=== PATIENT | female | born 1950 | race Caucasian/White ===

== ENCOUNTER 2024-11-11 16:11 | Inpatient (IN) | payer MEDICARE, SELFPAY ==
--- NOTE | 2024-11-11 | ECG_ITS ---
Test Reason : pre op Blood Pressure : */* mmHG Vent. Rate : 77 BPM Atrial Rate : 77 BPM P-R Int : 162 ms QRS Dur : 86 ms QT Int : 382 ms P-R-T Axes : 50 64 66 degrees QTcB Int : 432 ms Normal sinus rhythm Normal ECG No previous ECGs available Referred By: Ria Uribe Electronically Signed By: RY PANIAGUA MD
--- NOTE | ~2024-11-11 | XR_ITS ---
CLINICAL HISTORY: fx --- Additional Notes or Special Instructions: Done - 1 view chest x-ray Comparison: None Findings: The lungs are clear. Heart size is normal. No acute fracture. IMPRESSION: 1. No acute findings. This document has been electronically signed by: Andrés Krause MD on 11/11/2024 17:44:42
--- NOTE | ~2024-11-11 | XR_ITS ---
CLINICAL HISTORY: fall R hip pain unable to walk --- Additional Notes or Special Instructions: Done - 3 view, pelvis and right hip Comparison: None Findings: Moderately displaced subcapital femoral neck fracture on the right. No significant arthritic change. The soft tissues are unremarkable. IMPRESSION: Right subcapital femoral neck fracture. This document has been electronically signed by: Andrés Krause MD on 11/11/2024 17:44:32
--- NOTE | ~2024-11-11 | XR_ITS ---
CLINICAL HISTORY: s p rt hip phyllis 1 view pelvis Comparison: X-rays of the pelvis and right hip from 11/11/2024. Findings: Postprocedural changes from right hip arthroplasty. Postprocedural changes include soft tissue gas, soft tissue swelling, and fluid. Sclerosis of the left femoral neck is nonspecific. Moderate to severe osteoarthritis of the left hip noted. Mild pubic rami deformities appear old/chronic. Sacrum and SI joints are mostly obscured with obscuration of the portions of the pelvis. Soft tissues are unremarkable. IMPRESSION: 1. New postprocedural changes from right hip arthroplasty for previous right femur fracture. 2. Nonspecific sclerosis of the left femoral neck. Consider dedicated left hip imaging, if clinically indicated and when clinically able. This document has been electronically signed by: Arcenio Pro MD on 11/12/2024 19:42:39
[2024-11-11 16:18] VITALS: BP 196/96; BP 198/93; PULSE 81; PULSE 82; RESP 20; TEMP 36.8; O2SAT 98; BMI 30.4
--- NOTE | 2024-11-11 16:49 | ED.LOWEXIN ---
HPI - Extremity Injury (Lower) General Chief Complaint: Extremity Injury, Lower Stated Complaint: mechanical fall no loc, r hip pain, no head strike Time Seen by Provider: 11/11/24 16:48 Source: patient, EMS, RN notes reviewed and old records reviewed Mode of arrival: EMS History of Present Illness ED Provider: Amy Vela PA-C HPI Narrative: 74-year-old female with past medical history DM presenting to ED via EMS from [facility] complaining of right hip pain s/p mechanical trip and fall [employer]. Patient states she was standing looking out the window and stepped back however lost her footing, states her walker was behind her, and fell onto buttock/right side. Denies head trauma or LOC. Has been unable to ambulate/stand since incident. Denies numbness, tingling, weakness, back pain, abdominal pain Related Data Allergies Allergy/AdvReac Type Severity Reaction Status Date / Time aspartame Allergy Unknown Verified 11/11/24 16:30 [From Nutrasweet Aspartame] codeine Allergy Unknown Verified 11/11/24 16:30 empagliflozin Allergy Unknown Verified 11/11/24 16:30 [From Jardiance] Iodinated Contrast Media Allergy Unknown Verified 11/11/24 16:30 [IV Contrast Dye] lamotrigine [From Lamictal] Allergy Unknown Verified 11/11/24 16:30 Review of Systems Review of Systems: Yes all other systems are reviewed and are negative Constitutional: Constitutional: Reports as per [facility] Past Medical History Attestation statement: The following information was validated with the patient. Source: old records reviewed Social History Social History Advance Directives: No Advance Directives Information Provided: No Physical Exam Vital Signs: Vital Signs: Last Vital Signs Temp 98.3 F 11/11/24 16:18 Pulse 81 11/11/24 16:18 Resp 20 11/11/24 16:18 BP 196/96 H 11/11/24 16:18 Pulse Ox 98 11/11/24 16:18 O2 Del Method Room Air 11/11/24 16:18 BMI result Body Mass Index 30.4 Const: General: cooperative, healthy appearing and no acute distress Orientation/consciousness: patient oriented x3 Limitations: no limitations HEENT: Head: Yes normal to inspection and Yes atraumatic Ears: hearing grossly normal bilaterally General nose exam: Normal external nose present Face and sinus: Yes normal facial exam Eyes: General: appearance normal, both eyes and all related structures EOM: EOMs intact bilaterally Neck: Neck: Yes normal visual inspection and Yes no meningeal signs Resp: Effort & Inspection: normal respiratory effort and no respiratory distress Cardio: Rate: regular rate GI: Inspection: Yes normal to inspection Palpation (GI): Soft to palpation, nontender, no guarding and not rigid Skin: Rashes: no rashes Wounds: no wounds Neuro: General: patient oriented x3, tone normal, moves all extremities and no meningeal signs Cranial nerves: Yes CN's II-XII intact bilaterally Extrem: Other: Pelvis stable. Right hip without appreciable deformity. Diffusely tender to palpation. Limited ROM secondary to pain. Neurovascularly intact distally. No erythema or ecchymosis Course Course Course Narrative: XR hip RT w PEL1V IMPRESSION: Right subcapital femoral neck fracture. -CXR unremarkable > case discussed with orthopedic JUDSON Zhang, recommended medicine admit, NPO at midnight and likely surgery tomorrow > case discussed with hospitalist [id number] Medications Administered Discontinued Medications Generic Name Dose Route Start Last Admin Trade Name Freq PRN Reason Stop Dose Admin Tramadol HCl 50 mg 11/11/24 16:55 11/11/24 17:36 Tramadol Hcl 50 Mg Tablet PO 11/11/24 16:56 50 mg ONCE ONE Administration Medical Decision Making Medical Decision Making [facility] Narrative: 74-year-old female with past medical history DM presenting to ED via EMS from [facility] complaining of right hip pain s/p mechanical trip and fall [employer]. On exam VSS, NAD, physical exam as noted above with reproducible right hip tenderness and limited ROM secondary to pain. Abdomen is soft and nontender. Concern for fracture vs contusion. Lower suspicion for dislocation. No open wounds. Plan: X-ray, pain control Please refer to course for remaining clinical decision making, interpretation of labs/imaging results, and discussions with consultants and/or family members. Differential Diagnosis Differential Diagnoses: The differential diagnosis associated with the presentation includes As above Admission/Observation Consideration of admission/observation: Escalation of care including admission/observation considered Consult Healthcare Provider Management of the patient was discussed with: Hospitalist and Assessment Expert Lab Data [facility] Lab Attestation statement: I reviewed the patient's lab results. Independent Interpretation I performed an independent interpretation of an: Plain X-Ray Radiology Impression Discussion of test interpretation with radiology: I have reviewed the radiologist's reading. Independent Historian Clinical information obtained from an independent historian. History obtained from or confirmed by: EMS External Record Review External record reviewed: Inpatient record, Office record, Outpatient record, Prior outpatient labs, Prior outpatient radiology, Primary care record and Outside ED record Tests considered The following testing was considered but not selected: As above Prescription Management I considered prescription management with: Pain Medication Chronic Conditions Patient?s care impacted by: Other Social Determinants Patient?s care significantly limited by Social Determinants of Health including: Problems related to primary support group and Other Social Determinant of Health Discharge Plan Discharge Clinical Impression: Closed subcapital fracture of neck of femur Qualifiers: Encounter type: initial encounter Laterality: right Qualified Code(s): S72.011A - Unspecified intracapsular fracture of right femur, initial encounter for closed fracture Patient Disposition: Admitted As Inpatient Print Language: Citizen Of [place]
[2024-11-11] MEDS: traMADoL HCL 50 MG TABLET PO (17:36)
[2024-11-11 18:23] LABS: MANUAL DIFF FLAG NO
[2024-11-11 18:31] LABS: Basophils Absolute Auto 0.1 X10*3/uL (0.0-0.2); Basophils Percent Auto 0.6 % (0-2); Eosinophils Absolute Auto 0.1 X10*3/uL (0.0-0.4); Hematocrit 35.5 % (37.0-47.0); Hemoglobin 12.3 g/dl (12.0-16.0); Imm Gran Abs Auto 0.08 X10*3/uL (0.00-0.03); Imm Gran Pct Auto 0.9 % (0.0-0.4); Lymphocytes Absolute Auto 1.3 X10*3/uL (1.2-4.9); Lymphocytes Percent Auto 15.1 % (20-40); Mean Corpuscular HGB Conc 34.6 g/dl (31.0-35.0); Mean Corpuscular Volume 86.6 fL (80.0-98.0); Mean Platelet Volume 9.1 fL (9.4-12.3); Monocytes Absolute Auto 0.5 X10*3/uL (0.1-1.2); Neutrophils Absolute Auto 6.8 x10*3/uL (2.0-8.3); Neutrophils Percent Auto 76.4 % (45-73); Platelet Count 348 X10*3/uL (160-400); Red Cell Distribution Width 11.8 % (11.0-16.0); White Blood Count 8.9 X10*3/uL (4.8-10.8)
[2024-11-11 18:38] LABS: Anion Gap 14 (12-20); Blood Urea Nitrogen 10 mg/dL (9-16); Calcium 9.5 mg/dL (8.4-10.2); Carbon Dioxide 26 mmol/L (22-29); Chloride 97 mmol/L (96-108); Creatinine Clr Calc Pharmacy 80.8; Estimated Glomerular Filt Rate > 60; Glucose Random 178 mg/dL (60-115); Potassium 3.9 mmol/L (3.3-5.1); Sodium 133 mmol/L (135-145)
--- NOTE | 2024-11-11 18:56 | PHA.MEDREC ---
Addendum entered by Carolin Ward RPh 11/11/24 19:05: reviewed by [facility]. Original Note: Pharmacy Consult ? Medication Reconciliation Pharmacy has completed the medication reconciliation. Utilized list from [facility] to confirm med list.
--- NOTE | 2024-11-11 19:06 | PM.IMHP ---
History of Present Illness Date of Service: 11/11/24 Attending physician on admission: Lynn Patterson Chief Complaint: fall Patient is a 74-year-old female currently living in [facility], an assisted living facility, with past medical history [id number] diabetes, hypertension, hyperlipidemia, GERD, hypothyroidism, iron-deficiency anemia, depression, vitamin-D and vitamin B12 deficiencies, maricarmen hx presents to the emergency department via ambulance status post unwitnessed fall resulting in right femur fracture. Patient states she was using her walker looking out her window and suddenly fell backwards with a walker. Patient is not 100% sure she had loss of consciousness or hit to the head.. Patient states she was on the floor for approximately 20 minutes before help arrived from staff at the facility. Patient offers that she does not understand why her legs give out the way they do. Patient reports other similar falls but no injury like today. Balderrama was placed in the ED today. Patient is a poor historian and does not know her medications. Unable to reach patient's daughter, Becca Alvarado who is the healthcare proxy. No phone number is listed. Orthopedics has been consulted and plan is for surgery in the morning. Patient will be NPO. Currently providing pain management as patient is reporting 10/10 right upper leg pain. Patient currently denying any headache, chest pain, nausea or vomiting. Review of Systems Review of Systems: Patient denies any headache, visual changes, chest pain, shortness of breath at rest or with exertion, abdominal pain. Patient is reporting 10/10 right upper back pain after 1 dose of tramadol. Patient states she does not believe she has an allergy to codeine. Yes all other systems are reviewed and are negative [facility] Cognitive capacity: Alert and orientated x3, short-term and long-term memory appear fair Functional capacity: bed bound (Currently due to right lower leg fracture otherwise patient uses walker) Patient : No Social History (Updated 11/11/24 @ 20:34 by CHIP Goncalves) Alcohol intake: never Patient Tobacco Use Status: Never used Tobacco Use of substances other than those prescribed or required for medical reasons: No Are you DNR?: No Advance Directives: No Advance Directives Information Provided: No Healthcare Proxy: Yes Do you have a plan to hurt others: No Plan Patient : No Ebola Risk: Travel/Contact With Anyone From Affected Area/s: No Has Patient Experienced Ebola Symptoms: No Meds Allergies Allergy/AdvReac Type Severity Reaction Status Date / Time aspartame Allergy Unknown Verified 11/11/24 16:30 [From Nutrasweet Aspartame] codeine Allergy Unknown Verified 11/11/24 16:30 empagliflozin Allergy Unknown Verified 11/11/24 16:30 [From Jardiance] Iodinated Contrast Media Allergy Unknown Verified 11/11/24 16:30 [IV Contrast Dye] lamotrigine [From Lamictal] Allergy Unknown Verified 11/11/24 16:30 Active Medications: Current Medications Acetaminophen (Acetaminophen 325 Mg Tablet) 650 mg PO Q6H PRN PRN Reason: Pain, Mild 1-3,fever,headache Calcium Carbonate (Calcium Carbonate 750 Mg Tab.Chew) 750 mg PO Q4H PRN PRN Reason: Heartburn Magnesium Hydroxide (Milk Of Magnesia 30 Ml Oral.Susp) 30 ml PO DAILY PRN PRN Reason: Constipation Melatonin (Melatonin 3 Mg Tablet) 6 mg PO BEDTIME PRN PRN Reason: Insomnia Ondansetron HCl (Ondansetron Hcl 4 Mg/2 Ml Vial) 4 mg IVPUSH Q8H PRN PRN Reason: Nausea and Vomiting Senna (Sennosides 8.6 Mg Tablet) 17.2 mg PO BEDTIME AYLIN Sodium Chloride (0.9 % Sodium Chloride Flush 3 Ml Syringe) 3 ml IVFLUSH QSHIFT AYLIN Tramadol HCl (Tramadol Hcl 50 Mg Tablet) 50 mg PO Q6H PRN PRN Reason: Pain, Moderate(Pain Scale 4-6) Home Medications ?Medication ?Instructions ?Recorded ?Confirmed ?Last Taken ?Type Lactobacillus acidophilus 1,000 mmu cells PO DAILY 11/11/24 11/11/24 Unknown History (Acidophilus capsule) acetaminophen 500 mg tablet 500 mg PO Q6H PRN Pain 11/11/24 11/11/24 Unknown History aspirin 81 mg capsule 81 mg PO DAILY 11/11/24 11/11/24 Unknown History atorvastatin 40 mg tablet 40 mg PO BEDTIME 11/11/24 11/11/24 Unknown History cholecalciferol (vitamin D3) 25 25 mcg PO DAILY 11/11/24 11/11/24 Unknown History mcg (1,000 unit) tablet (Vitamin D3) cyanocobalamin (vitamin B-12) 1,000 mcg PO MOWEFR 11/11/24 11/11/24 Unknown History 1,000 mcg tablet (Vitamin B-12) duloxetine 60 mg capsule,delayed 60 mg PO DAILY 11/11/24 11/11/24 Unknown History release ferrous sulfate 324 mg (65 mg 324 mg PO DAILY 11/11/24 11/11/24 Unknown History iron) tablet,delayed release levothyroxine 25 mcg tablet 25 mcg PO DAILY@0600 11/11/24 11/11/24 Unknown History lidocaine 4 % topical patch 1 patch topical DAILY PRN Pain 11/11/24 11/11/24 Unknown History liraglutide 0.6 mg/0.1 mL (18 mg/3 1.2 mg subcut DAILY 11/11/24 11/11/24 Unknown History mL) subcutaneous pen injector (Baoku 3-Román) lisinopril 10 mg tablet 10 mg PO DAILY 11/11/24 11/11/24 Unknown History loperamide 2 mg tablet 2 mg PO BID PRN Diarrhea 11/11/24 11/11/24 Unknown History lurasidone 80 mg tablet 80 mg PO DAILY 11/11/24 11/11/24 Unknown History meloxicam 15 mg tablet 15 mg PO DAILY 11/11/24 11/11/24 Unknown History metformin 1,000 mg tablet 1,000 mg PO BID 11/11/24 11/11/24 Unknown History mirtazapine 7.5 mg tablet 7.5 mg PO BEDTIME 11/11/24 11/11/24 Unknown History oxcarbazepine 150 mg tablet 150 mg PO DAILY 11/11/24 11/11/24 Unknown History oxcarbazepine 300 mg tablet 300 mg PO BEDTIME 11/11/24 11/11/24 Unknown History pantoprazole 40 mg tablet,delayed 40 mg PO DAILY@0630 11/11/24 11/11/24 Unknown History release Physical Exam Vital Signs and Narrative: Vital Signs: Last Vital Signs Temp 98.3 F 11/11/24 16:18 Pulse 81 11/11/24 16:18 Resp 20 11/11/24 16:18 BP 196/96 H 11/11/24 16:18 Pulse Ox 98 11/11/24 16:18 O2 Del Method Room Air 11/11/24 16:18 BMI result Body Mass Index 30.4 Alert and orientated X3, able to provide some medical history but limited on specifics Neuro: CN II-X11 intact, visual acuity intact Pt unable to move RLE, sensation is intact EYES: PERRLA, EOM intact ENT: hearing intact, no issues with swallowing, uvula midline, lips moist, nares patent no epistaxis Cardiac: S1 S2 RRR, no murmur, no JVD, no edema in Lower ext Pulmonary: lungs clear to ausculation B Abdominal: BS active in all 4 quadrants, no guarding, tenderness, rebounding MSK: strength 4/5 upper and L lower extremity, unable to asses RLE : no CVA tenderness no bladder distension Extremities: no edema in lower extremities, PT and DP pulses palpable +2, R leg extended extended outward, no bruising seen Psych: mood stable, judgement and insight fair Results Labs 11/11/24 18:20 11/11/24 18:20 Labs: Laboratory Results - last 24 hr 11/11/24 18:20 MCV 86.6 MCH 30.0 MCHC 34.6 RDW 11.8 Plt Count 348 MPV 9.1 L Immature Gran % (Auto) 0.9 H Neut % (Auto) 76.4 H Lymph % (Auto) 15.1 L [place] % (Auto) 6.0 Eos % (Auto) 1.0 Baso % (Auto) 0.6 Lymph # (Auto) 1.3 [place] # (Auto) 0.5 Eos # (Auto) 0.1 Baso # (Auto) 0.1 Abs Immat Gran (auto) 0.08 H Absolute Neuts (auto) 6.8 Absolute Nucleated RBC 0.000 Nucleated RBC % (auto) 0.0 PT 11.0 INR 1.0 Anion Gap 14 Estim Creat Clear Calc 80.8 Estimated GFR > 60 Random Glucose 178 H Calcium 9.5 Imaging Radiologist's Impressions: HIP PELVIS R Findings: Moderately displaced subcapital femoral neck fracture on the right. No significant arthritic change. The soft tissues are unremarkable. IMPRESSION: Right subcapital femoral neck fracture. CXR Findings: The lungs are clear. Heart size is normal. No acute fracture. IMPRESSION: 1. No acute findings. Assessment and Plan (1) Closed subcapital fracture of neck of femur: Qualifiers: Encounter type: initial encounter Laterality: right Qualified Code(s): S72.011A - Unspecified intracapsular fracture of right femur, initial encounter for closed fracture Status: Acute Plan Patient is a 74-year-old female currently living in [facility], an assisted living facility, with past medical history itf-hcyrtbp-[id number] diabetes, hypertension, hyperlipidemia, GERD, hypothyroidism, iron-deficiency anemia, depression, vitamin-D and vitamin B12 deficiencies, seziure hx is being admitted for repair of right femur fracture with Orthopedics in the a.m.. Patient is a fairly poor historian. 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 R subcapuital femur fx -Orthopedics consulted -NPO midnight -preop EKG ordered, we will review once available -pain management to include Dilaudid 1 mg x 1, oxycodone p.r.n., Tylenol p.r.n. -bowel regimen started -Lovenox held, aspirin held -neurovascular checks ordered Q shift of right lower extremity -Pt down for short time per pt report, will check CK level -Pt denies hx of osteoporosis History of falls -patient is not the best historian but offers that she has had similar falls with possible loss of consciousness. Patient can not confirm this. -we will start telemetry and monitor rhythm overnight -if any abnormalities found, consult cardiology for near-syncope/syncope -unable to check orthostatics due to patient's right lower leg injury -TEDS ordered HTN -hydralazine p.r.n. for systolic greater than 160 -low-sodium diet -resume home antihypertensives after surgery DMII -sliding scale insulin -diabetic diet -hold metformin HLD -continue atorvastatin Hypothyrpidism -checking TSH with reflex -continue levothyroxine Seizure disorder -continue oxcarbamazepine (patient unable to clarify why she is on this medication, unable to reach healthcare proxy) -patient states no recent history of seizures NED -H&H currently stable 12.3 and 35.5 -continue vitamin B12 -continue iron and bowel regimen -monitor H and H postoperatively GERD -omeprazole -avoid food triggers DVT propphylaxis: held due to possible surgery in AM PPI prophylaxis: omeperazole MED REC Pending [facility] status Quality Stroke Does the patient have a stroke diagnosis?: No Reason for No Anti-thrombotic by Day Two: Contraindicated VTE Prior VTE?: No VTE Risk Level:: Medical - moderate - high VTE Device Contraindication: N/A - Device Ordered VTE Drug Contraindication: N/A - Med Ordered
[2024-11-11 19:46] VITALS: BP 183/86; PULSE 76; RESP 20; TEMP 36.6; O2SAT 97
[2024-11-11] MEDS: HYDROmorphone HCl 1 MG/ML SYRINGE IVPUSH (20:01)
[2024-11-11] MEDS: Omeprazole 20 MG CAPSULE.DR PO (20:02)
[2024-11-11 20:18] VITALS: BP 158/88; PULSE 64
[2024-11-11 22:36] LABS: Glucose, Whole Blood 239 mg/dL (60-115)
[2024-11-11] MEDS: Mirtazapine 7.5 MG TABLET PO (22:52)
[2024-11-11] MEDS: Insulin Lispro 100 UNIT/ML 3 ML VIAL SUBCUT (22:53)
[2024-11-11] MEDS: Sennosides 8.6 MG TABLET 17.2 MG PO (22:53)
[2024-11-11] MEDS: Atorvastatin Calcium 40 MG TABLET PO (22:53)
[2024-11-11] MEDS: OXcarbazepine 300 MG TABLET PO (22:53)
[2024-11-11] MEDS: oxyCODONE HCl Immed Release 5 MG TABLET PO (22:55)
[2024-11-12] VITALS (17 sets, daily range): BP systolic 108–197; BP diastolic 51–85; PULSE 67–89; RESP 11–21; TEMP 36.4–37; O2SAT 92–97
--- NOTE | 2024-11-12 01:43 | PC.NURSE ---
Balderrama urine output demonstrating hematuria. Provider notified, new orders placed.
[2024-11-12] MEDS: hydrALAZINE HCl 20 MG/ML VIAL 10 MG IVPUSH (01:51)
[2024-11-12] MEDS: HYDROmorphone HCl 0.5 MG/0.5 ML SYRINGE IVPUSH ×2 (01:51→07:41)
[2024-11-12] MEDS: 0.9 % Sodium Chloride Flush 3 ML SYRINGE IVFLUSH ×4 (01:52→20:21)
[2024-11-12] MEDS: amLODIPine Besylate 5 MG TABLET PO (04:17)
[2024-11-12] MEDS: ondansetron HCL 4 MG/2 ML VIAL IVPUSH ×2 (04:17→14:11)
[2024-11-12 04:58] LABS: Appearance Urine Cloudy; Color Urine Orange; Glucose Urine UA 250 mg/dL (Negative); Leukocyte Esterase Urine Small (1+) (Negative); Nitrite Urine Negative (Negative); UMIC TRIGGER UA YES; Urine Blood Large (3+) (Negative); Urine Ketones Trace mg/dL (Negative); Urine Protein 300 (3+) mg/dL (Neg-Trace)
[2024-11-12 04:59] LABS: Bacteria Urine None Seen (None Seen); Hyaline Casts Urine 0-2 /LPF (0-2); RBC Urine >20 /HPF (0-2); Squamous Epithelial Cell Urine 0-2 /HPF (0-2)
--- NOTE | 2024-11-12 05:36 | PC.NURSE ---
Notified provider of pts elevated bp, new order placed medications administered as per mar
[2024-11-12] MEDS: oxyCODONE HCl Immed Release 5 MG TABLET PO ×2 (05:39→11:27)
[2024-11-12] MEDS: Levothyroxine Sodium 25 MCG TABLET PO (07:21)
[2024-11-12 07:40] LABS: Glucose, Whole Blood 246 mg/dL (60-115)
[2024-11-12] MEDS: Omeprazole 20 MG CAPSULE.DR PO (07:42)
[2024-11-12 08:28] LABS: MANUAL DIFF FLAG NO
[2024-11-12 08:31] LABS: Basophils Absolute Auto 0.1 X10*3/uL (0.0-0.2); Basophils Percent Auto 0.4 % (0-2); Eosinophils Absolute Auto 0.1 X10*3/uL (0.0-0.4); Hematocrit 36.8 % (37.0-47.0); Hemoglobin 12.7 g/dl (12.0-16.0); Imm Gran Abs Auto 0.05 X10*3/uL (0.00-0.03); Imm Gran Pct Auto 0.4 % (0.0-0.4); Lymphocytes Percent Auto 8.2 % (20-40); Mean Corpuscular HGB Conc 34.5 g/dl (31.0-35.0); Mean Corpuscular Hemoglobin 29.5 pg (27.0-33.0); Mean Corpuscular Volume 85.4 fL (80.0-98.0); Mean Platelet Volume 8.8 fL (9.4-12.3); Monocytes Absolute Auto 0.5 X10*3/uL (0.1-1.2); Monocytes Percent Auto 3.7 % (2-11); Neutrophils Absolute Auto 10.6 x10*3/uL (2.0-8.3); Neutrophils Percent Auto 86.3 % (45-73); Platelet Count 348 X10*3/uL (160-400); Red Blood Count 4.31 X10*6/uL (4.20-5.50); Red Cell Distribution Width 11.9 % (11.0-16.0); White Blood Count 12.3 X10*3/uL (4.8-10.8)
[2024-11-12 08:45] LABS: Estimated Average Glucose 189 mg/dL; Hemoglobin A1C 223.6362 umol/L; Hemoglobin A1c % 8.2 % (<6.0); Total Hemoglobin (HGBA1C) 3355.1416 umol/L
[2024-11-12 08:49] LABS: Glucose, Whole Blood 167 mg/dL (60-115)
[2024-11-12 08:50] LABS: Alanine Aminotransferase 17 U/L (0-31); Albumin Level 4.1 g/dL (3.5-5.0); Alkaline Phosphatase 97 U/L (39-117); Anion Gap 12 (12-20); Aspartate Amino Transferase 21 U/L (5-31); Bilirubin Total 0.5 mg/dL (0.0-1.0); Blood Urea Nitrogen 11 mg/dL (9-16); Calcium 9.5 mg/dL (8.4-10.2); Carbon Dioxide 25 mmol/L (22-29); Chloride 97 mmol/L (96-108); Creatinine Clr Calc Pharmacy 76.6; Estimated Glomerular Filt Rate > 60; Glucose Random 240 mg/dL (60-115); Magnesium 1.4 mg/dL (1.6-2.6); Phosphorus 4.2 mg/dL (2.7-4.5); Potassium 4.1 mmol/L (3.3-5.1); Sodium 130 mmol/L (135-145); Total Protein 7.1 g/dL (6.5-8.0)
[2024-11-12 09:10] LABS: TSH reflex Free T4 2.56 uIU/mL (0.32-4.0)
--- NOTE | 2024-11-12 09:26 | PC.NURSE ---
Assumed care of pt this AM. Pt alert, oriented x2. Aware of plan for care. Endorsing R hip and back pain, medicated for pain as per EMR, effective. + cms in RLE. Report given to SSS. Update also given to daughter Becca, HCP (invoked), number placed in chart. Paperwork given to registration for scanning. MD updated on HCP requesting consultation with any further decision making.
--- NOTE | 2024-11-12 09:45 | PM.CNOR ---
History of Present Illness HPI Consult date: 11/12/24 Chief complaint: Fall Narrative: Ms. Buchanan is a 74-year-old female who presented to the emergency department yesterday after sustaining a mechanical fall. Patient is a past medical history significant for diabetes (not insulin dependent), HTN, HLD, GERD, iron deficiency anemia, vitamin D3 and B12 deficiency and depression. There is report that the patient has a past medical history significant for seizures but upon asking the patient she denies this. She states that she was walking with her walker and looking out the window when all of a sudden she began to fall backwards. After the fall she felt immediate right hip pain and was transported to the emergency department where x-rays were obtained and she was found to have a right femoral neck fracture. She was admitted to the medicine service with orthopedic consult for further evaluation and treatment. Review of Systems Review of Systems: Yes all other systems are reviewed and are negative [facility] Past Medical History Medical History (Updated 11/12/24 @ 08:32 by Jackie Castaneda RN) Seizures Vitamin B12 deficiency Vitamin D deficiency Depression Anemia Hypothyroid GERD (gastroesophageal reflux disease) Hyperlipidemia HTN (hypertension) Diabetes Social History Social History (Updated 11/11/24 @ 20:34 by Ria Uribe [facility]) Alcohol intake: never Patient Tobacco Use Status: Never used Tobacco Use of substances other than those prescribed or required for medical reasons: No Are you DNR?: No Advance Directives: No Advance Directives Information Provided: No Healthcare Proxy: Yes Do you have a plan to hurt others: No Plan Patient : No Travel History Ebola Risk: Travel/Contact With Anyone From Affected Area/s: No Has Patient Experienced Ebola Symptoms: No Meds Allergies Allergy/AdvReac Type Severity Reaction Status Date / Time aspartame Allergy Unknown Verified 11/11/24 16:30 [From Nutrasweet Aspartame] codeine Allergy Unknown Verified 11/11/24 16:30 empagliflozin Allergy Unknown Verified 11/11/24 16:30 [From Jardiance] Iodinated Contrast Media Allergy Unknown Verified 11/11/24 16:30 [IV Contrast Dye] lamotrigine [From Lamictal] Allergy Unknown Verified 11/11/24 16:30 Active Medications: Current Medications Acetaminophen (Acetaminophen 325 Mg Tablet) 650 mg PO Q6H PRN PRN Reason: Pain, Mild 1-3,fever,headache Atorvastatin Calcium (Atorvastatin Calcium 40 Mg Tablet) 40 mg PO BEDTIME [facility] Last Admin: 11/11/24 22:53 Dose: 40 mg Calcium Carbonate (Calcium Carbonate 750 Mg Tab.Chew) 750 mg PO Q4H PRN PRN Reason: Heartburn Cyanocobalamin (Cyanocobalamin (Vitamin B-12) 1,000 Mcg Tablet) 1,000 mcg PO MOWEFR [facility] Dextrose (Dextrose 50 % 25 Gm/50 Ml Syringe) 25 gm IVPUSH Q15M PRN; Protocol PRN Reason: per Hypoglycemia Standing Ord. Duloxetine HCl (Duloxetine Hcl 60 Mg Capsule.Dr) 60 mg PO DAILY [facility] Ferrous Sulfate (Ferrous Sulfate 324 Mg Tablet.Dr) 324 mg PO DAILY [facility] Glucose (Glucose Gel 15 Gm Gel..Gram.) 15 gm PO Q15M PRN; Protocol PRN Reason: per Hypoglycemia Standing Ord. Hydralazine HCl (Hydralazine Hcl 20 Mg/Ml Vial) 10 mg IVPUSH Q6H PRN; Protocol PRN Reason: SBP > 160 Last Admin: 11/12/24 01:51 Dose: 10 mg Hydromorphone HCl (Hydromorphone Hcl 0.5 Mg/0.5 Ml Syringe) 0.5 mg IVPUSH Q3H PRN; Protocol PRN Reason: Pain, Severe (Pain Scale 7-10) Last Admin: 11/12/24 07:41 Dose: 0.5 mg Insulin Human Lispro (Insulin Lispro 100 Unit/Ml 3 Ml Vial) 0 unit SUBCUT QIDACHS [facility]; Protocol Last Admin: 11/12/24 07:40 Dose: Not Given Levothyroxine Sodium (Levothyroxine Sodium 25 Mcg Tablet) 25 mcg PO DAILY@0600 [facility] Last Admin: 11/12/24 07:21 Dose: 25 mcg Lisinopril (Lisinopril 10 Mg Tablet) 10 mg PO DAILY [facility]; Protocol Lurasidone HCl (Lurasidone Hcl 80 Mg Tablet) 80 mg PO DAILY [facility] Magnesium Hydroxide (Milk Of Magnesia 30 Ml Oral.Susp) 30 ml PO DAILY PRN PRN Reason: Constipation Melatonin (Melatonin 3 Mg Tablet) 6 mg PO BEDTIME PRN PRN Reason: Insomnia Mirtazapine (Mirtazapine 7.5 Mg Tablet) 7.5 mg PO BEDTIME [facility] Last Admin: 11/11/24 22:52 Dose: 7.5 mg Omeprazole (Omeprazole 20 Mg Capsule.Dr) 20 mg PO DAILY@0630 [facility] Last Admin: 11/12/24 07:42 Dose: 20 mg Ondansetron HCl (Ondansetron Hcl 4 Mg/2 Ml Vial) 4 mg IVPUSH Q8H PRN PRN Reason: Nausea and Vomiting Last Admin: 11/12/24 04:17 Dose: 4 mg Oxcarbazepine (Oxcarbazepine 150 Mg Tablet) 150 mg PO DAILY [facility] Oxcarbazepine (Oxcarbazepine 300 Mg Tablet) 300 mg PO BEDTIME [facility] Last Admin: 11/11/24 22:53 Dose: 300 mg Oxycodone HCl (Oxycodone Hcl Immed Release 5 Mg Tablet) 5 mg PO Q6H PRN PRN Reason: Pain, Moderate(Pain Scale 4-6) Last Admin: 11/12/24 05:39 Dose: 5 mg Polyethylene Glycol (Polyethylene Glycol 3350 17 Gm Powd.Pack) 17 gm PO DAILY PRN PRN Reason: Constipation Senna (Sennosides 8.6 Mg Tablet) 17.2 mg PO BEDTIME [facility] Last Admin: 11/11/24 22:53 Dose: 17.2 mg Sodium Chloride (0.9 % Sodium Chloride Flush 3 Ml Syringe) 3 ml IVFLUSH QSHIFT [facility] Last Admin: 11/12/24 09:05 Dose: 3 ml Vitamin D (Cholecalciferol (Vitamin D3) 25 Mcg Tablet) 25 mcg PO DAILY [facility] Home Medications ?Medication ?Instructions ?Recorded ?Confirmed ?Last Taken ?Type Lactobacillus acidophilus 1,000 mmu cells PO DAILY 11/11/24 11/11/24 Unknown History (Acidophilus capsule) acetaminophen 500 mg tablet 500 mg PO Q6H PRN Pain 11/11/24 11/11/24 Unknown History aspirin 81 mg capsule 81 mg PO DAILY 11/11/24 11/11/24 Unknown History atorvastatin 40 mg tablet 40 mg PO BEDTIME 11/11/24 11/11/24 Unknown History cholecalciferol (vitamin D3) 25 25 mcg PO DAILY 11/11/24 11/11/24 Unknown History mcg (1,000 unit) tablet (Vitamin D3) cyanocobalamin (vitamin B-12) 1,000 mcg PO MOWEFR 11/11/24 11/11/24 Unknown History 1,000 mcg tablet (Vitamin B-12) duloxetine 60 mg capsule,delayed 60 mg PO DAILY 11/11/24 11/11/24 Unknown History release ferrous sulfate 324 mg (65 mg 324 mg PO DAILY 11/11/24 11/11/24 Unknown History iron) tablet,delayed release levothyroxine 25 mcg tablet 25 mcg PO DAILY@0600 11/11/24 11/11/24 Unknown History lidocaine 4 % topical patch 1 patch topical DAILY PRN Pain 11/11/24 11/11/24 Unknown History liraglutide 0.6 mg/0.1 mL (18 mg/3 1.2 mg subcut DAILY 11/11/24 11/11/24 Unknown History mL) subcutaneous pen injector (TellFi 3-Román) lisinopril 10 mg tablet 10 mg PO DAILY 11/11/24 11/11/24 Unknown History loperamide 2 mg tablet 2 mg PO BID PRN Diarrhea 11/11/24 11/11/24 Unknown History lurasidone 80 mg tablet 80 mg PO DAILY 11/11/24 11/11/24 Unknown History meloxicam 15 mg tablet 15 mg PO DAILY 11/11/24 11/11/24 Unknown History metformin 1,000 mg tablet 1,000 mg PO BID 11/11/24 11/11/24 Unknown History mirtazapine 7.5 mg tablet 7.5 mg PO BEDTIME 11/11/24 11/11/24 Unknown History oxcarbazepine 150 mg tablet 150 mg PO DAILY 11/11/24 11/11/24 Unknown History oxcarbazepine 300 mg tablet 300 mg PO BEDTIME 11/11/24 11/11/24 Unknown History pantoprazole 40 mg tablet,delayed 40 mg PO DAILY@0630 11/11/24 11/11/24 Unknown History release Physical Exam Vital Signs: Vital Signs: Last Vital Signs Temp 97.9 F 11/12/24 09:26 Pulse 78 11/12/24 09:26 Resp 11 L 11/12/24 09:26 BP 153/84 H 11/12/24 09:26 Pulse Ox 97 11/12/24 09:26 O2 Del Method Room Air 11/12/24 09:26 O2 Flow Rate 2 11/12/24 02:25 BMI result Body Mass Index 30.4 Const: General: cooperative, healthy appearing, comfortable, no acute distress, well developed, alert and awake Orientation/consciousness: patient oriented x3 HEENT: Head: Yes normal to inspection, Yes normocephalic and Yes atraumatic Eyes: General: appearance normal, both eyes and all related structures Neck: Neck: Yes normal visual inspection and Yes no lymphadenopathy Resp: Effort & Inspection: normal respiratory effort and able to speak in complete sentences Cardio: Rate: regular rate Peripheral pulses: Peripheral pulses 2+ throughout GI: Inspection: Yes normal to inspection Palpation (GI): Soft to palpation Skin: General skin exam: no rashes or lesions noted Neuro: General: patient oriented x3 Extrem: Other: Right lower extremity is shortened and externally rotated. Pain with any attempt at motion. Pedal pulse intact. Able to dorsiflex and plantar flex. Psych: Mental Status: mental status grossly normal Results Labs 11/12/24 08:16 11/12/24 08:16 Labs: Abnormal lab results 11/11/24 11/11/24 11/11/24 Range/Units 18:20 18:28 22:32 WBC (4.8-10.8) X10*3/uL RBC 4.10 L (4.20-5.50) X10*6/uL Hct 35.5 L (37.0-47.0) % MPV 9.1 L (9.4-12.3) fL Immature Gran % (Auto) 0.9 H (0.0-0.4) % Neut % (Auto) 76.4 H (45-73) % Lymph % (Auto) 15.1 L (20-40) % Lymph # (Auto) (1.2-4.9) X10*3/uL Abs Immat Gran (auto) 0.08 H (0.00-0.03) X10*3/uL Absolute Neuts (auto) (2.0-8.3) x10*3/uL Sodium 133 L (135-145) mmol/L POC Glucose 167 H 239 H (60-115) mg/dL Random Glucose 178 H (60-115) mg/dL Hemoglobin A1c % (<6.0) % Magnesium (1.6-2.6) mg/dL Urine Color Urine Protein (Neg-Trace) mg/dL Urine Glucose (UA) (Negative) mg/dL Urine Blood (Negative) Ur Leukocyte Esterase (Negative) Urine RBC (0-2) /HPF Urine WBC (0-5) /HPF 11/12/24 11/12/24 11/12/24 Range/Units 04:30 07:37 08:16 WBC 12.3 H (4.8-10.8) X10*3/uL RBC (4.20-5.50) X10*6/uL Hct 36.8 L (37.0-47.0) % MPV 8.8 L (9.4-12.3) fL Immature Gran % (Auto) (0.0-0.4) % Neut % (Auto) 86.3 H (45-73) % Lymph % (Auto) 8.2 L (20-40) % Lymph # (Auto) 1.0 L (1.2-4.9) X10*3/uL Abs Immat Gran (auto) 0.05 H (0.00-0.03) X10*3/uL Absolute Neuts (auto) 10.6 H (2.0-8.3) x10*3/uL Sodium 130 L (135-145) mmol/L POC Glucose 246 H (60-115) mg/dL Random Glucose 240 H (60-115) mg/dL Hemoglobin A1c % 8.2 H (<6.0) % Magnesium 1.4 L* (1.6-2.6) mg/dL Urine Color [place] A Urine Protein 300 (3+) H (Neg-Trace) mg/dL Urine Glucose (UA) 250 H (Negative) mg/dL Urine Blood Large (3+) H (Negative) Ur Leukocyte Esterase Small (1+) H (Negative) Urine RBC >20 H (0-2) /HPF Urine WBC 6-10 H (0-5) /HPF H & H 11/11/24 11/12/24 Range/Units 18:20 08:16 Hgb 12.3 12.7 (12.0-16.0) g/dl Hct 35.5 L 36.8 L (37.0-47.0) % Coagulation 11/11/24 Range/Units 18:20 INR 1.0 (0.9-1.1) All other labs normal. Assessment and Plan (1) Closed subcapital fracture of neck of femur: Qualifiers: Encounter type: initial encounter Laterality: right Qualified Code(s): S72.011A - Unspecified intracapsular fracture of right femur, initial encounter for closed fracture Status: Acute I discussed the case with Dr. Sam and explained the extent of the injury to the patient and options available which include surgical intervention. I explained the procedure in detail along with the length of recovery and rehab course. I explained the risk, benefits and alternatives. Risk including, but not limited to infection, blood clots, bleeding, non union or malunion and nerve/tissue damage to surrounding areas. I answered all their questions and with their understanding they have consented to move forward with Operative Fixation of the right hip. The patient will be T&S, med clearance obtained and she will remain NPO for OR tentatively later this afternoon. Procedures Date of Service Date of Service: 11/12/24
[2024-11-12] MEDS: lisinopriL 10 MG TABLET PO (09:48)
[2024-11-12] MEDS: DULoxetine HCl 60 MG CAPSULE.DR PO (09:48)
[2024-11-12] MEDS: Ferrous Sulfate 324 MG TABLET.DR PO (09:49)
[2024-11-12] MEDS: OXcarbazepine 150 MG TABLET PO (09:49)
[2024-11-12] MEDS: Magnesium Sulfate/H2O 2 GM/50 ML PIGGYBACK IV (09:49)
[2024-11-12] MEDS: Lurasidone HCl 80 MG TABLET PO (09:49)
[2024-11-12] MEDS: Cholecalciferol (Vitamin D3) 25 MCG TABLET PO (09:49)
--- NOTE | 2024-11-12 11:37 | MHC.CM.PN ---
CM met with Patient at bedside, in the ED, and spoke with invoked HCP Agent/Hedy /Daughter @ [phone] and addressed IMM with Daughter (original will be mailed certified mail to Daughter and a copy will be placed on the chart). Patient lives alone at [facility] and she is likely going to need STR(Daughter's first choice is [facility] and [facility] is second choice). CM has initiated and will follow for dc planning. PCP is Dr. Aida Engel and Patient will require BLS transport.
[2024-11-12 12:37] LABS: Glucose, Whole Blood 182 mg/dL (60-115)
--- NOTE | 2024-11-12 13:07 | P.PNIM_ITS ---
Subjective Subjective Date of Service: 11/12/24 Interval History: R hip pain controlled no chest pain or dyspnea Review of Systems Review of Systems: Yes all other systems are reviewed and are negative Physical Exam 2 Vital Signs: Vital Signs: Last Vital Signs Temp 97.7 F 11/12/24 12:22 Pulse 79 11/12/24 12:22 Resp 16 11/12/24 12:22 BP 151/70 H 11/12/24 12:22 Pulse Ox 95 11/12/24 12:22 O2 Del Method Room Air 11/12/24 12:22 O2 Flow Rate 2 11/12/24 02:25 BMI result Body Mass Index 30.4 Gen: in no acute distress HEENT: sclera anicteric, moist mucus membranes Neck: supple Lungs: clear to auscultation bilaterally Heart: regular rate and rhythm, no murmurs Abd: soft, non-tender, non-distended Ext: no edema, RLE externally rotated Skin: warm/well-perfused Neuro: alert and oriented x3, no focal findings Psych: appropriate affect Objective Data Active Medications Acetaminophen (Acetaminophen 325 Mg Tablet) 650 mg PO Q6H PRN PRN Reason: Pain, Mild 1-3,fever,headache Atorvastatin Calcium (Atorvastatin Calcium 40 Mg Tablet) 40 mg PO BEDTIME [facility] Last Admin: 11/11/24 22:53 Dose: 40 mg Documented By: MELANIE Calcium Carbonate (Calcium Carbonate 750 Mg Tab.Chew) 750 mg PO Q4H PRN PRN Reason: Heartburn Cyanocobalamin (Cyanocobalamin (Vitamin B-12) 1,000 Mcg Tablet) 1,000 mcg PO MOWEFR [facility] Last Admin: 11/12/24 09:50 Dose: Not Given Documented By: PREETHI Non-Admin Reason: Med Not Available Dextrose (Dextrose 50 % 25 Gm/50 Ml Syringe) 25 gm IVPUSH Q15M PRN; Protocol PRN Reason: per Hypoglycemia Standing Ord. Duloxetine HCl (Duloxetine Hcl 60 Mg Capsule.) 60 mg PO DAILY [facility] Last Admin: 11/12/24 09:48 Dose: 60 mg Documented By: PREETHI Ferrous Sulfate (Ferrous Sulfate 324 Mg Tablet.) 324 mg PO DAILY [facility] Last Admin: 11/12/24 09:49 Dose: 324 mg Documented By: PREETHI Glucose (Glucose Gel 15 Gm Gel..Gram.) 15 gm PO Q15M PRN; Protocol PRN Reason: per Hypoglycemia Standing Ord. Hydralazine HCl (Hydralazine Hcl 20 Mg/Ml Vial) 10 mg IVPUSH Q6H PRN; Protocol PRN Reason: SBP > 160 Last Admin: 11/12/24 01:51 Dose: 10 mg Documented By: MELANIE Hydromorphone HCl (Hydromorphone Hcl 0.5 Mg/0.5 Ml Syringe) 0.5 mg IVPUSH Q3H PRN; Protocol PRN Reason: Pain, Severe (Pain Scale 7-10) Last Admin: 11/12/24 07:41 Dose: 0.5 mg Documented By: PREETHI Insulin Human Lispro (Insulin Lispro 100 Unit/Ml 3 Ml Vial) 0 unit SUBCUT QIDACHS [facility]; Protocol Last Admin: 11/12/24 12:34 Dose: Not Given Documented By: JOSSELINE Non-Admin Reason: NPO Levothyroxine Sodium (Levothyroxine Sodium 25 Mcg Tablet) 25 mcg PO DAILY@0600 [facility] Last Admin: 11/12/24 07:21 Dose: 25 mcg Documented By: PREETHI Lisinopril (Lisinopril 10 Mg Tablet) 10 mg PO DAILY [facility]; Protocol Last Admin: 11/12/24 09:48 Dose: 10 mg Documented By: PREETHI Lurasidone HCl (Lurasidone Hcl 80 Mg Tablet) 80 mg PO DAILY [facility] Last Admin: 11/12/24 09:49 Dose: 80 mg Documented By: PREETHI Magnesium Hydroxide (Milk Of Magnesia 30 Ml Oral.Susp) 30 ml PO DAILY PRN PRN Reason: Constipation Melatonin (Melatonin 3 Mg Tablet) 6 mg PO BEDTIME PRN PRN Reason: Insomnia Mirtazapine (Mirtazapine 7.5 Mg Tablet) 7.5 mg PO BEDTIME [facility] Last Admin: 11/11/24 22:52 Dose: 7.5 mg Documented By: MELANIE Omeprazole (Omeprazole 20 Mg Capsule.Dr) 20 mg PO DAILY@0630 [facility] Last Admin: 11/12/24 07:42 Dose: 20 mg Documented By: PREETHI Ondansetron HCl (Ondansetron Hcl 4 Mg/2 Ml Vial) 4 mg IVPUSH Q8H PRN PRN Reason: Nausea and Vomiting Last Admin: 11/12/24 04:17 Dose: 4 mg Documented By: MELANIE Oxcarbazepine (Oxcarbazepine 150 Mg Tablet) 150 mg PO DAILY [facility] Last Admin: 11/12/24 09:49 Dose: 150 mg Documented By: PREETHI Oxcarbazepine (Oxcarbazepine 300 Mg Tablet) 300 mg PO BEDTIME [facility] Last Admin: 11/11/24 22:53 Dose: 300 mg Documented By: MELANIE Oxycodone HCl (Oxycodone Hcl Immed Release 5 Mg Tablet) 5 mg PO Q6H PRN PRN Reason: Pain, Moderate(Pain Scale 4-6) Last Admin: 11/12/24 11:27 Dose: 5 mg Documented By: JOSSELINE Polyethylene Glycol (Polyethylene Glycol 3350 17 Gm Powd.Pack) 17 gm PO DAILY PRN PRN Reason: Constipation Senna (Sennosides 8.6 Mg Tablet) 17.2 mg PO BEDTIME [facility] Last Admin: 11/11/24 22:53 Dose: 17.2 mg Documented By: MELANIE Sodium Chloride (0.9 % Sodium Chloride Flush 3 Ml Syringe) 3 ml IVFLUSH QSHIFT [facility] Last Admin: 11/12/24 09:05 Dose: 3 ml Documented By: PREETHI Vitamin D (Cholecalciferol (Vitamin D3) 25 Mcg Tablet) 25 mcg PO DAILY [facility] Last Admin: 11/12/24 09:49 Dose: 25 mcg Documented By: PREETHI Labs 11/12/24 08:16 11/12/24 08:16 Labs: Laboratory Results - last 24 hr 11/11/24 11/11/24 11/11/24 18:20 18:28 20:12 MCV 86.6 MCH 30.0 MCHC 34.6 RDW 11.8 Plt Count 348 MPV 9.1 L Immature Gran % (Auto) 0.9 H Neut % (Auto) 76.4 H Lymph % (Auto) 15.1 L [place] % (Auto) 6.0 Eos % (Auto) 1.0 Baso % (Auto) 0.6 Lymph # (Auto) 1.3 [place] # (Auto) 0.5 Eos # (Auto) 0.1 Baso # (Auto) 0.1 Abs Immat Gran (auto) 0.08 H Absolute Neuts (auto) 6.8 Absolute Nucleated RBC 0.000 Nucleated RBC % (auto) 0.0 PT 11.0 INR 1.0 Anion Gap 14 Estim Creat Clear Calc 80.8 Estimated GFR > 60 POC Glucose 167 H Random Glucose 178 H Estimat Average Glucose Hemoglobin A1c % Calcium 9.5 Phosphorus Magnesium Total Bilirubin AST ALT Alkaline Phosphatase Total Creatine Kinase 57 Total Protein Albumin TSH Urine Color Urine Appearance Urine pH Ur Specific [place] Urine Protein Urine Glucose (UA) Urine Ketones Urine Blood Urine Nitrite Ur Leukocyte Esterase Urine RBC Urine WBC Ur Squamous Epith Cells Urine Bacteria Hyaline Casts Blood Type A Positive Antibody Screen NEGATIVE 11/11/24 11/12/24 11/12/24 22:32 04:30 07:37 MCV MCH MCHC RDW Plt Count MPV Immature Gran % (Auto) Neut % (Auto) Lymph % (Auto) [place] % (Auto) Eos % (Auto) Baso % (Auto) Lymph # (Auto) [place] # (Auto) Eos # (Auto) Baso # (Auto) Abs Immat Gran (auto) Absolute Neuts (auto) Absolute Nucleated RBC Nucleated RBC % (auto) PT INR Anion Gap Estim Creat Clear Calc Estimated GFR POC Glucose 239 H 246 H Random Glucose Estimat Average Glucose Hemoglobin A1c % Calcium Phosphorus Magnesium Total Bilirubin AST ALT Alkaline Phosphatase Total Creatine Kinase Total Protein Albumin TSH Urine Color [place] A Urine Appearance Cloudy Urine pH 6.0 Ur Specific [place] 1.020 Urine Protein 300 (3+) H Urine Glucose (UA) 250 H Urine Ketones Trace Urine Blood Large (3+) H Urine Nitrite Negative Ur Leukocyte Esterase Small (1+) H Urine RBC >20 H Urine WBC 6-10 H Ur Squamous Epith Cells 0-2 Urine Bacteria None Seen Hyaline Casts 0-2 Blood Type Antibody Screen 11/12/24 11/12/24 08:16 12:32 MCV 85.4 MCH 29.5 MCHC 34.5 RDW 11.9 Plt Count 348 MPV 8.8 L Immature Gran % (Auto) 0.4 Neut % (Auto) 86.3 H Lymph % (Auto) 8.2 L [place] % (Auto) 3.7 Eos % (Auto) 1.0 Baso % (Auto) 0.4 Lymph # (Auto) 1.0 L [place] # (Auto) 0.5 Eos # (Auto) 0.1 Baso # (Auto) 0.1 Abs Immat Gran (auto) 0.05 H Absolute Neuts (auto) 10.6 H Absolute Nucleated RBC 0.000 Nucleated RBC % (auto) 0.0 PT INR Anion Gap 12 Estim Creat Clear Calc 76.6 Estimated GFR > 60 POC Glucose 182 H Random Glucose 240 H Estimat Average Glucose 189 Hemoglobin A1c % 8.2 H Calcium 9.5 Phosphorus 4.2 Magnesium 1.4 L* Total Bilirubin 0.5 AST 21 ALT 17 Alkaline Phosphatase 97 Total Creatine Kinase Total Protein 7.1 Albumin 4.1 TSH 2.56 Urine Color Urine Appearance Urine pH Ur Specific [place] Urine Protein Urine Glucose (UA) Urine Ketones Urine Blood Urine Nitrite Ur Leukocyte Esterase Urine RBC Urine WBC Ur Squamous Epith Cells Urine Bacteria Hyaline Casts Blood Type Antibody Screen Assessment and Plan (1) Closed subcapital fracture of neck of femur: Status: Acute Assessment and Plan: d2 for 74yo F with bipolar disorder, DM2, HTN, HLD, GERD, hypothyroidism, and NED who fell and sustained R subcapital femur fracture R femur fracture - Ortho consulted, plan operative repair today, pain control with hydromorphone + oxycodone + APAP - RCRI 1 for DM2, no further preoperative workup indicated - updated pt's daughter/HCP by phone, Hedy history of recurrent falls - telemetry monitoring, PT postop HTN - lisinopril DM2 - hold MTF, give johnnie-dose lispro HLD - statin hypothyroidism - continue LT4 bipolar disorder - continue oxcarbazepine, lurasidone, duloxetine, mirtazapine GERD - PPI NED - continue Fe VTE ppx - SCDs, LMWH postop dispo - STR postop In my clinical judgment, the patient requires continued inpatient hospitalization for the following reasons: operative intervention Total time managing care of this patient today: 45 minutes. Quality Stroke Does the patient have a stroke diagnosis?: No Reason for No Anti-thrombotic by Day Two: Contraindicated VTE Prior VTE?: No VTE Risk Level:: Medical - moderate - high VTE Device Contraindication: N/A - Device Ordered VTE Drug Contraindication: N/A - Med Ordered
[2024-11-12 14:19] LABS: Glucose, Whole Blood 199 mg/dL (60-115)
--- NOTE | 2024-11-12 14:39 | MHC.SHP ---
Pre-Procedural Eval Section A - 24 Hr Update-Section A only Date of Service: 11/12/24 The patient is an INPATIENT: Yes Changes since office visit: No Cold of Flu in the past 2 weeks, No New Medical Problems, No Changes in Medication and No Patient answered all questions The patient has been examined within 24 hours of the surgical procedure. The History & Physical has been completed within 30 days and I have reviewed it.: Yes Section B - Complete if H&P > 30 days Chief Complaint: Fall Allergies: Allergies Allergy/AdvReac Type Severity Reaction Status Date / Time aspartame Allergy Unknown Verified 11/11/24 16:30 [From Nutrasweet Aspartame] codeine Allergy Unknown Verified 11/11/24 16:30 empagliflozin Allergy Unknown Verified 11/11/24 16:30 [From Jardiance] Iodinated Contrast Media Allergy Unknown Verified 11/11/24 16:30 [IV Contrast Dye] lamotrigine [From Lamictal] Allergy Unknown Verified 11/11/24 16:30 Plan I have reviewed the history and physical and performed a pertinent physical examination on my patient. No changes have occurred unless specified. Time Spent With Patient Time: Total time managing care of this patient today ____ minutes.
--- NOTE | 2024-11-12 14:49 | HO.ANESPROP2 ---
[facility] Active Problems Active Problems: All Active Problems Closed subcapital fracture of neck of femur (Acute) Past Medical History Medical History (Updated 11/12/24 @ 14:14 by Marta Barrett RN) Dementia Seizures Vitamin B12 deficiency Vitamin D deficiency Depression Anemia Hypothyroid GERD (gastroesophageal reflux disease) Hyperlipidemia HTN (hypertension) Diabetes Functional capacity: bed bound (Currently due to right lower leg fracture otherwise patient uses walker) Family History Family history of problems with anesthesia: No Surgical History History of Problems with Anesthesia: No Social History Social History (Updated 11/11/24 @ 20:34 by Ria Uribe [facility]) Alcohol intake: never Patient Tobacco Use Status: Former Tobacco user Use of substances other than those prescribed or required for medical reasons: No Are you DNR?: No Advance Directives: No Advance Directives Information Provided: No Healthcare Proxy: Yes Do you have a plan to hurt others: No Plan Patient : No service: No Meds Allergies Allergy/AdvReac Type Severity Reaction Status Date / Time aspartame Allergy Unknown Verified 11/11/24 16:30 [From Nutrasweet Aspartame] codeine Allergy Unknown Verified 11/11/24 16:30 empagliflozin Allergy Unknown Verified 11/11/24 16:30 [From Jardiance] Iodinated Contrast Media Allergy Unknown Verified 11/11/24 16:30 [IV Contrast Dye] lamotrigine [From Lamictal] Allergy Unknown Verified 11/11/24 16:30 Active Medications: Current Medications Acetaminophen (Acetaminophen 325 Mg Tablet) 650 mg PO Q6H PRN PRN Reason: Pain, Mild 1-3,fever,headache Atorvastatin Calcium (Atorvastatin Calcium 40 Mg Tablet) 40 mg PO BEDTIME [facility] Last Admin: 11/11/24 22:53 Dose: 40 mg Calcium Carbonate (Calcium Carbonate 750 Mg Tab.Chew) 750 mg PO Q4H PRN PRN Reason: Heartburn Cyanocobalamin (Cyanocobalamin (Vitamin B-12) 1,000 Mcg Tablet) 1,000 mcg PO MOWEFR [facility] Last Admin: 11/12/24 09:50 Dose: Not Given Dextrose (Dextrose 50 % 25 Gm/50 Ml Syringe) 25 gm IVPUSH Q15M PRN; Protocol PRN Reason: per Hypoglycemia Standing Ord. Duloxetine HCl (Duloxetine Hcl 60 Mg Capsule.Dr) 60 mg PO DAILY [facility] Last Admin: 11/12/24 09:48 Dose: 60 mg Ferrous Sulfate (Ferrous Sulfate 324 Mg Tablet.) 324 mg PO DAILY [facility] Last Admin: 11/12/24 09:49 Dose: 324 mg Glucose (Glucose Gel 15 Gm Gel..Gram.) 15 gm PO Q15M PRN; Protocol PRN Reason: per Hypoglycemia Standing Ord. Hydralazine HCl (Hydralazine Hcl 20 Mg/Ml Vial) 10 mg IVPUSH Q6H PRN; Protocol PRN Reason: SBP > 160 Last Admin: 11/12/24 01:51 Dose: 10 mg Hydromorphone HCl (Hydromorphone Hcl 0.5 Mg/0.5 Ml Syringe) 0.5 mg IVPUSH Q3H PRN; Protocol PRN Reason: Pain, Severe (Pain Scale 7-10) Last Admin: 11/12/24 07:41 Dose: 0.5 mg Insulin Human Lispro (Insulin Lispro 100 Unit/Ml 3 Ml Vial) 0 unit SUBCUT QIDACHS [facility]; Protocol Last Admin: 11/12/24 12:34 Dose: Not Given Levothyroxine Sodium (Levothyroxine Sodium 25 Mcg Tablet) 25 mcg PO DAILY@0600 [facility] Last Admin: 11/12/24 07:21 Dose: 25 mcg Lisinopril (Lisinopril 10 Mg Tablet) 10 mg PO DAILY [facility]; Protocol Last Admin: 11/12/24 09:48 Dose: 10 mg Lurasidone HCl (Lurasidone Hcl 80 Mg Tablet) 80 mg PO DAILY [facility] Last Admin: 11/12/24 09:49 Dose: 80 mg Magnesium Hydroxide (Milk Of Magnesia 30 Ml Oral.Susp) 30 ml PO DAILY PRN PRN Reason: Constipation Melatonin (Melatonin 3 Mg Tablet) 6 mg PO BEDTIME PRN PRN Reason: Insomnia Mirtazapine (Mirtazapine 7.5 Mg Tablet) 7.5 mg PO BEDTIME [facility] Last Admin: 11/11/24 22:52 Dose: 7.5 mg Omeprazole (Omeprazole 20 Mg Capsule.) 20 mg PO DAILY@0630 [facility] Last Admin: 11/12/24 07:42 Dose: 20 mg Ondansetron HCl (Ondansetron Hcl 4 Mg/2 Ml Vial) 4 mg IVPUSH Q8H PRN PRN Reason: Nausea and Vomiting Last Admin: 11/12/24 14:11 Dose: 4 mg Oxcarbazepine (Oxcarbazepine 150 Mg Tablet) 150 mg PO DAILY [facility] Last Admin: 11/12/24 09:49 Dose: 150 mg Oxcarbazepine (Oxcarbazepine 300 Mg Tablet) 300 mg PO BEDTIME [facility] Last Admin: 11/11/24 22:53 Dose: 300 mg Oxycodone HCl (Oxycodone Hcl Immed Release 5 Mg Tablet) 5 mg PO Q6H PRN PRN Reason: Pain, Moderate(Pain Scale 4-6) Last Admin: 11/12/24 11:27 Dose: 5 mg Polyethylene Glycol (Polyethylene Glycol 3350 17 Gm Powd.Pack) 17 gm PO DAILY PRN PRN Reason: Constipation Senna (Sennosides 8.6 Mg Tablet) 17.2 mg PO BEDTIME [facility] Last Admin: 11/11/24 22:53 Dose: 17.2 mg Sodium Chloride (0.9 % Sodium Chloride Flush 3 Ml Syringe) 3 ml IVFLUSH QSHIFT [facility] Last Admin: 11/12/24 09:05 Dose: 3 ml Vitamin D (Cholecalciferol (Vitamin D3) 25 Mcg Tablet) 25 mcg PO DAILY [facility] Last Admin: 11/12/24 09:49 Dose: 25 mcg Home Medications ?Medication ?Instructions ?Recorded ?Confirmed ?Last Taken ?Type Lactobacillus acidophilus 1,000 mmu cells PO DAILY 11/11/24 11/11/24 Unknown History (Acidophilus capsule) acetaminophen 500 mg tablet 500 mg PO Q6H PRN Pain 11/11/24 11/11/24 Unknown History aspirin 81 mg capsule 81 mg PO DAILY 11/11/24 11/11/24 Unknown History atorvastatin 40 mg tablet 40 mg PO BEDTIME 11/11/24 11/11/24 Unknown History cholecalciferol (vitamin D3) 25 25 mcg PO DAILY 11/11/24 11/11/24 Unknown History mcg (1,000 unit) tablet (Vitamin D3) cyanocobalamin (vitamin B-12) 1,000 mcg PO MOWEFR 11/11/24 11/11/24 Unknown History 1,000 mcg tablet (Vitamin B-12) duloxetine 60 mg capsule,delayed 60 mg PO DAILY 11/11/24 11/11/24 Unknown History release ferrous sulfate 324 mg (65 mg 324 mg PO DAILY 11/11/24 11/11/24 Unknown History iron) tablet,delayed release levothyroxine 25 mcg tablet 25 mcg PO DAILY@0600 11/11/24 11/11/24 Unknown History lidocaine 4 % topical patch 1 patch topical DAILY PRN Pain 11/11/24 11/11/24 Unknown History liraglutide 0.6 mg/0.1 mL (18 mg/3 1.2 mg subcut DAILY 11/11/24 11/11/24 Unknown History mL) subcutaneous pen injector ([employer]) lisinopril 10 mg tablet 10 mg PO DAILY 11/11/24 11/11/24 Unknown History loperamide 2 mg tablet 2 mg PO BID PRN Diarrhea 11/11/24 11/11/24 Unknown History lurasidone 80 mg tablet 80 mg PO DAILY 11/11/24 11/11/24 Unknown History meloxicam 15 mg tablet 15 mg PO DAILY 11/11/24 11/11/24 Unknown History metformin 1,000 mg tablet 1,000 mg PO BID 11/11/24 11/11/24 Unknown History mirtazapine 7.5 mg tablet 7.5 mg PO BEDTIME 11/11/24 11/11/24 Unknown History oxcarbazepine 150 mg tablet 150 mg PO DAILY 11/11/24 11/11/24 Unknown History oxcarbazepine 300 mg tablet 300 mg PO BEDTIME 11/11/24 11/11/24 Unknown History pantoprazole 40 mg tablet,delayed 40 mg PO DAILY@0630 11/11/24 11/11/24 Unknown History release Exam Height,Weight and Vital Signs: Height 5 ft 8 in Weight 90.718 kg Last Vital Signs Temp 98.0 F 11/12/24 13:52 Pulse 89 11/12/24 13:52 Resp 15 11/12/24 13:52 BP 162/71 H 11/12/24 13:52 Pulse Ox 94 11/12/24 13:52 O2 Del Method Nasal Cannula 11/12/24 13:52 O2 Flow Rate 2 11/12/24 13:52 Pertinent Lab Results Pertinent Lab Results: Laboratory Tests 11/11/24 11/11/24 11/11/24 18:20 18:28 20:12 WBC 8.9 RBC 4.10 L Hgb 12.3 Hct 35.5 L MCV 86.6 MCH 30.0 MCHC 34.6 RDW 11.8 Plt Count 348 MPV 9.1 L Immature Gran % (Auto) 0.9 H Neut % (Auto) 76.4 H Lymph % (Auto) 15.1 L [place] % (Auto) 6.0 Eos % (Auto) 1.0 Baso % (Auto) 0.6 Lymph # (Auto) 1.3 [place] # (Auto) 0.5 Eos # (Auto) 0.1 Baso # (Auto) 0.1 Abs Immat Gran (auto) 0.08 H Absolute Neuts (auto) 6.8 Absolute Nucleated RBC 0.000 Nucleated RBC % (auto) 0.0 PT 11.0 INR 1.0 Sodium 133 L Potassium 3.9 Chloride 97 Carbon Dioxide 26 Anion Gap 14 BUN 10 Creatinine 0.73 Estim Creat Clear Calc 80.8 Estimated GFR > 60 POC Glucose 167 H Random Glucose 178 H Estimat Average Glucose Hemoglobin A1c % Calcium 9.5 Phosphorus Magnesium Total Bilirubin AST ALT Alkaline Phosphatase Total Creatine Kinase 57 Total Protein Albumin TSH Urine Color Urine Appearance Urine pH Ur Specific [place] Urine Protein Urine Glucose (UA) Urine Ketones Urine Blood Urine Nitrite Ur Leukocyte Esterase Urine RBC Urine WBC Ur Squamous Epith Cells Urine Bacteria Hyaline Casts Blood Type A Positive Antibody Screen NEGATIVE 11/11/24 11/12/24 11/12/24 22:32 04:30 07:37 WBC RBC Hgb Hct MCV MCH MCHC RDW Plt Count MPV Immature Gran % (Auto) Neut % (Auto) Lymph % (Auto) [place] % (Auto) Eos % (Auto) Baso % (Auto) Lymph # (Auto) [place] # (Auto) Eos # (Auto) Baso # (Auto) Abs Immat Gran (auto) Absolute Neuts (auto) Absolute Nucleated RBC Nucleated RBC % (auto) PT INR Sodium Potassium Chloride Carbon Dioxide Anion Gap BUN Creatinine Estim Creat Clear Calc Estimated GFR POC Glucose 239 H 246 H Random Glucose Estimat Average Glucose Hemoglobin A1c % Calcium Phosphorus Magnesium Total Bilirubin AST ALT Alkaline Phosphatase Total Creatine Kinase Total Protein Albumin TSH Urine Color [place] A Urine Appearance Cloudy Urine pH 6.0 Ur Specific [place] 1.020 Urine Protein 300 (3+) H Urine Glucose (UA) 250 H Urine Ketones Trace Urine Blood Large (3+) H Urine Nitrite Negative Ur Leukocyte Esterase Small (1+) H Urine RBC >20 H Urine WBC 6-10 H Ur Squamous Epith Cells 0-2 Urine Bacteria None Seen Hyaline Casts 0-2 Blood Type Antibody Screen 11/12/24 11/12/24 11/12/24 08:16 12:32 14:07 WBC 12.3 H RBC 4.31 Hgb 12.7 Hct 36.8 L MCV 85.4 MCH 29.5 MCHC 34.5 RDW 11.9 Plt Count 348 MPV 8.8 L Immature Gran % (Auto) 0.4 Neut % (Auto) 86.3 H Lymph % (Auto) 8.2 L [place] % (Auto) 3.7 Eos % (Auto) 1.0 Baso % (Auto) 0.4 Lymph # (Auto) 1.0 L [place] # (Auto) 0.5 Eos # (Auto) 0.1 Baso # (Auto) 0.1 Abs Immat Gran (auto) 0.05 H Absolute Neuts (auto) 10.6 H Absolute Nucleated RBC 0.000 Nucleated RBC % (auto) 0.0 PT INR Sodium 130 L Potassium 4.1 Chloride 97 Carbon Dioxide 25 Anion Gap 12 BUN 11 Creatinine 0.77 Estim Creat Clear Calc 76.6 Estimated GFR > 60 POC Glucose 182 H 199 H Random Glucose 240 H Estimat Average Glucose 189 Hemoglobin A1c % 8.2 H Calcium 9.5 Phosphorus 4.2 Magnesium 1.4 L* Total Bilirubin 0.5 AST 21 ALT 17 Alkaline Phosphatase 97 Total Creatine Kinase Total Protein 7.1 Albumin 4.1 TSH 2.56 Urine Color Urine Appearance Urine pH Ur Specific [place] Urine Protein Urine Glucose (UA) Urine Ketones Urine Blood Urine Nitrite Ur Leukocyte Esterase Urine RBC Urine WBC Ur Squamous Epith Cells Urine Bacteria Hyaline Casts Blood Type Antibody Screen Airway Mallampati Class: II (edentulous on top, 2 teeth present on the bottom) TM Dist: >3cm Neck ROM: Full Heart: rrr Lungs: cta Assessment and Plan Assessment Anesthesia Assessment: Anesthesia Plan Discussed and Chart Reviewed Final Anesthetic Review Family History of Problems with Anesthesia: No History of Problems with Anesthesia: No NPO: Yes ASA Class: III Final Preanesthetic Review: No Changes in Pt Med Stat, Meds/Allgs Chart Reviewed and Consent Obtained/Reviewed Patient Risk: Intermediate Procedure Risk: Intermediate Anesthetic Plan Anesthetic Plan: GA Disposition: Standard PACU
[2024-11-12] MEDS: ceFAZolin Sodium/Dextrose,Iso 2 GM/50 ML PIGGYBACK IV (15:10)
--- NOTE | 2024-11-12 16:10 | P.BOP_ITS ---
Brief Operative Note Date of Service: 11/12/24 Pre-op diagnosis: right femoral neck fracture Post-op diagnosis: same Procedure: Right hip hemiarthroplasty Implants: Khoa Accolade2 #5 127 with - bipolar Surgeon: Cristiano Sam MD Anesthesia: GETA and local Was an Cutter Operator Tile used for this Procedure?: Yes Cutter Operator Tile: Anna Stacy Estimated blood loss (mL): 200 IV fluids (mL): 750 Pathology: other Condition: stable Disposition: PACU
--- NOTE | 2024-11-12 16:13 | W.PM.OPN ---
Operative Note Operative Note Date of Service: 11/12/24 Narrative: Procedure in detail: Patient was brought to the operative room placed in the lateral decubitus position. All bony prominences were well padded and the was prepped and draped in standard sterile fashion. IV antibiotics per weight were administered and a time-out was called to identify proper site proper procedure proper surgeon. Radiographs were available and confirmed. I began by making a curvilinear incision over the posterolateral aspect of the greater trochanter. Dissection was taken down to the tensor fascia which was incised in line with the incision and a Charnley retractor was placed. The hip was internally rotated and the external rotators were identified. All vessels in the area were cauterized and a full-thickness capsular/external rotator layer was developed in a hockey-stick fashion starting just proximal to the piriformis. This layer was tagged and the displaced femoral neck fracture was identified. Clean-up cuts was performed while protecxtion the posterolateral soft tissues and the head was removed and measured (43mm) on the back table. I then copiously irrigated the acetabulum and removed all bony fragments. Once this was done I used a cookie cutter to lateralize and a Charnley awl to identify the canal and then sequentially broached up to a 127 deg #5. Her bone quality was decent with good metaphyseal bone. I elected to placde an uncemented prosthesis. I then trialed with a -3mm head and a bipolar component matching the femoral head size. I was satisfied with the range of motion and stability and length. Therefore I removed all instrumentation and copiously irrigated. I then placed my final femoral implant and then retrialed. I was satisfied with the -3/43 implants. My final bipolar components were then placed. I closed the capsular layer with FiberWire and thenirrigated copiously. I performed a layered closure with judy on skin. The patient was placed in sterile dressing extubated brought to recovery room in stable condition there were no known complications.
[2024-11-12 17:53] LABS: Glucose, Whole Blood 269 mg/dL (60-115)
[2024-11-12] MEDS: Insulin Lispro 100 UNIT/ML 3 ML VIAL SUBCUT ×2 (18:07→20:21)
[2024-11-12 20:16] LABS: Glucose, Whole Blood 345 mg/dL (60-115)
[2024-11-12] MEDS: Mirtazapine 7.5 MG TABLET PO (20:20)
[2024-11-12] MEDS: OXcarbazepine 300 MG TABLET PO (20:20)
[2024-11-12] MEDS: Sennosides 8.6 MG TABLET 17.2 MG PO (20:20)
[2024-11-12] MEDS: Atorvastatin Calcium 40 MG TABLET PO (20:20)
[2024-11-13] VITALS (10 sets, daily range): BP systolic 132–185; BP diastolic 60–86; PULSE 81–112; RESP 14–18; TEMP 36.4–37.3; O2SAT 94–98
[2024-11-13] MEDS: Acetaminophen 325 MG TABLET 650 MG PO (03:06)
[2024-11-13] MEDS: hydrALAZINE HCl 20 MG/ML VIAL 10 MG IVPUSH (03:22)
[2024-11-13] MEDS: HYDROmorphone HCl 0.5 MG/0.5 ML SYRINGE IVPUSH ×2 (05:16→21:44)
[2024-11-13] MEDS: Omeprazole 20 MG CAPSULE.DR PO (05:16)
[2024-11-13] MEDS: Levothyroxine Sodium 25 MCG TABLET PO (05:16)
[2024-11-13 05:53] LABS: Hematocrit 34.3 % (37.0-47.0); Hemoglobin 11.5 g/dl (12.0-16.0); Mean Corpuscular HGB Conc 33.5 g/dl (31.0-35.0); Mean Corpuscular Hemoglobin 29.4 pg (27.0-33.0); Mean Corpuscular Volume 87.7 fL (80.0-98.0); Mean Platelet Volume 9.2 fL (9.4-12.3); Platelet Count 318 X10*3/uL (160-400); Red Blood Count 3.91 X10*6/uL (4.20-5.50); Red Cell Distribution Width 12.1 % (11.0-16.0); White Blood Count 13.6 X10*3/uL (4.8-10.8)
[2024-11-13 06:07] LABS: Anion Gap 15 (12-20); Blood Urea Nitrogen 14 mg/dL (9-16); Calcium 9.1 mg/dL (8.4-10.2); Carbon Dioxide 22 mmol/L (22-29); Chloride 96 mmol/L (96-108); Creatinine Clr Calc Pharmacy 75.7; Estimated Glomerular Filt Rate > 60; Glucose Random 267 mg/dL (60-115); Potassium 4.3 mmol/L (3.3-5.1); Sodium 129 mmol/L (135-145)
[2024-11-13 07:12] LABS: Glucose, Whole Blood 253 mg/dL (60-115)
[2024-11-13 07:56] LABS: Magnesium 1.9 mg/dL (1.6-2.6)
[2024-11-13] MEDS: 0.9 % Sodium Chloride Flush 3 ML SYRINGE IVFLUSH ×3 (08:02→21:46)
[2024-11-13] MEDS: Insulin Lispro 100 UNIT/ML 3 ML VIAL SUBCUT ×4 (08:02→21:46)
[2024-11-13] MEDS: Ferrous Sulfate 324 MG TABLET.DR PO (08:03)
[2024-11-13] MEDS: Cholecalciferol (Vitamin D3) 25 MCG TABLET PO (08:03)
[2024-11-13] MEDS: DULoxetine HCl 60 MG CAPSULE.DR PO (08:03)
[2024-11-13] MEDS: lisinopriL 10 MG TABLET PO (08:03)
[2024-11-13] MEDS: Lurasidone HCl 80 MG TABLET PO (08:03)
[2024-11-13] MEDS: OXcarbazepine 150 MG TABLET PO (08:03)
--- NOTE | 2024-11-13 10:28 | PM.PNORT ---
Subjective Subjective Date of Service: 11/13/24 Interval history: POD1 s/p rt hip phyllis Patient is resting in bed comfortably No overnight events Pain is managed No additional complaints Physical Exam Vital Signs: Vital Signs: Last Vital Signs Temp 97.6 F 11/13/24 07:39 Pulse 86 11/13/24 07:39 Resp 14 11/13/24 07:39 BP 136/78 11/13/24 07:39 Pulse Ox 97 11/13/24 07:39 O2 Del Method Nasal Cannula 11/13/24 07:39 O2 Flow Rate 2 11/13/24 07:39 BMI result Body Mass Index 30.4 Const: General: cooperative, healthy appearing and no acute distress Resp: Effort & Inspection: normal respiratory effort and able to speak in complete sentences Cardio: Rate: regular rate Peripheral pulses: Peripheral pulses 2+ throughout GI: Palpation (GI): Soft to palpation Skin: Lesions: no lesions Rashes: no rashes Extrem: Other: right hip dressing is c/d/i. Able to dorsi/plantar flex. Calf is supple and nontender. Sensation intact. Pedal pulse intact. Procedures Date of Service Date of Service: 11/13/24 Progress Note: A&P Assessment and plan (1) Closed subcapital fracture of neck of femur: Status: Acute Plan Continue pain mgmnt Begin Lovenox for dvt ppx begin PT/OT for rt hip phyllis - WBAT, posterior precautions Dispo planning-Pending PT eval, pain mgmnt, able to d/c to rehab once medically cleared Time Spent With Patient Time: Total time managing care of this patient today ____ minutes. Quality Stroke Does the patient have a stroke diagnosis?: No Reason for No Anti-thrombotic by Day Two: Contraindicated VTE Prior VTE?: No VTE Risk Level:: Medical - moderate - high VTE Device Contraindication: N/A - Device Ordered VTE Drug Contraindication: N/A - Med Ordered
[2024-11-13 11:33] LABS: Glucose, Whole Blood 290 mg/dL (60-115)
[2024-11-13] MEDS: oxyCODONE HCl Immed Release 5 MG TABLET PO (12:07)
--- NOTE | 2024-11-13 12:34 | HO.POSTANES ---
Post Anesthesia Evaluation Post Anesthesia Evaluation Date of Service: 11/13/24 Vital Signs: Vital Signs Temp Pulse Resp BP Pulse Ox O2 Del Method O2 Flow Rate 11/13/24 12:00 99.1 F 107 H 16 144/65 H 95 Nasal Cannula 2 11/13/24 07:39 97.6 F 86 14 136/78 97 Nasal Cannula 2 11/13/24 04:23 149/67 H 11/13/24 03:27 97.5 F 82 16 185/86 H 94 Nasal Cannula 3 11/13/24 03:19 185/86 H Anesthesia: General Endotracheal-GETA Mental Status: Awake Pain Control: Satisfactory Nausea/Vomiting: None Hydration: Adequate Anesthesia-Related Issues: No Anes. Related Issues
[2024-11-13 13:48] LABS: Creatinine Urine 130.19 mg/dL; Sodium Urine Random < 20.0 mmol/L
--- NOTE | 2024-11-13 13:56 | P.PNIM_ITS ---
Subjective Subjective Date of Service: 11/13/24 Interval History: pain controlled no dyspnea or cough Na low at 129 Review of Systems Review of Systems: Yes all other systems are reviewed and are negative Physical Exam 2 Vital Signs: Vital Signs: Last Vital Signs Temp 99.1 F 11/13/24 12:00 Pulse 107 H 11/13/24 13:38 Resp 16 11/13/24 12:00 BP 144/65 H 11/13/24 12:00 Pulse Ox 95 11/13/24 13:38 O2 Del Method Nasal Cannula 11/13/24 12:00 O2 Flow Rate 2 11/13/24 12:00 BMI result Body Mass Index 30.4 Gen: in no acute distress HEENT: sclera anicteric, moist mucus membranes Neck: supple Lungs: clear to auscultation bilaterally Heart: regular rate and rhythm, no murmurs Abd: soft, non-tender, non-distended Ext: no edema, R hip dressings dry Skin: warm/well-perfused Neuro: alert and oriented x3, no focal findings Psych: appropriate affect Objective Data Active Medications Acetaminophen (Acetaminophen 325 Mg Tablet) 650 mg PO Q6H PRN PRN Reason: Pain, Mild 1-3,fever,headache Last Admin: 11/13/24 03:06 Dose: 650 mg Documented By: MIMI Atorvastatin Calcium (Atorvastatin Calcium 40 Mg Tablet) 40 mg PO BEDTIME [facility] Last Admin: 11/12/24 20:20 Dose: 40 mg Documented By: MIMI Calcium Carbonate (Calcium Carbonate 750 Mg Tab.Chew) 750 mg PO Q4H PRN PRN Reason: Heartburn Cyanocobalamin (Cyanocobalamin (Vitamin B-12) 1,000 Mcg Tablet) 1,000 mcg PO MOWEFR [facility] Last Admin: 11/12/24 09:50 Dose: Not Given Documented By: PREETHI Non-Admin Reason: Med Not Available Dextrose (Dextrose 50 % 25 Gm/50 Ml Syringe) 25 gm IVPUSH Q15M PRN; Protocol PRN Reason: per Hypoglycemia Standing Ord. Duloxetine HCl (Duloxetine Hcl 60 Mg Capsule.) 60 mg PO DAILY [facility] Last Admin: 11/13/24 08:03 Dose: 60 mg Documented By: HERON Enoxaparin Sodium (Enoxaparin Sodium 40 Mg/0.4 Ml Syringe) 40 mg SUBCUT Q24H [facility] Ferrous Sulfate (Ferrous Sulfate 324 Mg Tablet.Dr) 324 mg PO DAILY [facility] Last Admin: 11/13/24 08:03 Dose: 324 mg Documented By: HERON Glucose (Glucose Gel 15 Gm Gel..Gram.) 15 gm PO Q15M PRN; Protocol PRN Reason: per Hypoglycemia Standing Ord. Hydralazine HCl (Hydralazine Hcl 20 Mg/Ml Vial) 10 mg IVPUSH Q6H PRN; Protocol PRN Reason: SBP > 160 Last Admin: 11/13/24 03:22 Dose: 10 mg Documented By: MIMI Hydromorphone HCl (Hydromorphone Hcl 0.5 Mg/0.5 Ml Syringe) 0.5 mg IVPUSH Q3H PRN; Protocol PRN Reason: Pain, Severe (Pain Scale 7-10) Last Admin: 11/13/24 05:16 Dose: 0.5 mg Documented By: MIMI Cefazolin Sodium/Dextrose (Ancef) 2 gm in 50 mls @ 100 mls/hr IV POSTOP [facility] Insulin Human Lispro (Insulin Lispro 100 Unit/Ml 3 Ml Vial) 0 unit SUBCUT QIDACHS [facility]; Protocol Last Admin: 11/13/24 12:06 Dose: 6 unit Documented By: HERON Levothyroxine Sodium (Levothyroxine Sodium 25 Mcg Tablet) 25 mcg PO DAILY@0600 [facility] Last Admin: 11/13/24 05:16 Dose: 25 mcg Documented By: MIMI Lisinopril (Lisinopril 10 Mg Tablet) 10 mg PO DAILY [facility]; Protocol Last Admin: 11/13/24 08:03 Dose: 10 mg Documented By: HERON Lurasidone HCl (Lurasidone Hcl 80 Mg Tablet) 80 mg PO DAILY [facility] Last Admin: 11/13/24 08:03 Dose: 80 mg Documented By: HERON Magnesium Hydroxide (Milk Of Magnesia 30 Ml Oral.Susp) 30 ml PO DAILY PRN PRN Reason: Constipation Melatonin (Melatonin 3 Mg Tablet) 6 mg PO BEDTIME PRN PRN Reason: Insomnia Mirtazapine (Mirtazapine 7.5 Mg Tablet) 7.5 mg PO BEDTIME [facility] Last Admin: 11/12/24 20:20 Dose: 7.5 mg Documented By: MIMI Naloxone HCl (Naloxone Hcl 0.4 Mg/Ml Vial) 0.04 mg IVPUSH Q5M PRN PRN Reason: Excessive sedation or RR < 8 Omeprazole (Omeprazole 20 Mg Capsule.Dr) 20 mg PO DAILY@0630 [facility] Last Admin: 11/13/24 05:16 Dose: 20 mg Documented By: MIMI Ondansetron HCl (Ondansetron Hcl 4 Mg/2 Ml Vial) 4 mg IVPUSH Q8H PRN PRN Reason: Nausea and Vomiting Last Admin: 11/12/24 14:11 Dose: 4 mg Documented By: ЮЛИЯ Oxcarbazepine (Oxcarbazepine 150 Mg Tablet) 150 mg PO DAILY [facility] Last Admin: 11/13/24 08:03 Dose: 150 mg Documented By: HERON Oxcarbazepine (Oxcarbazepine 300 Mg Tablet) 300 mg PO BEDTIME [facility] Last Admin: 11/12/24 20:20 Dose: 300 mg Documented By: MIMI Oxycodone HCl (Oxycodone Hcl Immed Release 5 Mg Tablet) 5 mg PO Q6H PRN PRN Reason: Pain, Moderate(Pain Scale 4-6) Last Admin: 11/13/24 12:07 Dose: 5 mg Documented By: HERON Polyethylene Glycol (Polyethylene Glycol 3350 17 Gm Powd.Pack) 17 gm PO DAILY PRN PRN Reason: Constipation Senna (Sennosides 8.6 Mg Tablet) 17.2 mg PO BEDTIME [facility] Last Admin: 11/12/24 20:20 Dose: 17.2 mg Documented By: MIMI Sodium Chloride (0.9 % Sodium Chloride Flush 3 Ml Syringe) 3 ml IVFLUSH QSHIFT [facility] Last Admin: 11/13/24 08:02 Dose: 3 ml Documented By: HERON Vitamin D (Cholecalciferol (Vitamin D3) 25 Mcg Tablet) 25 mcg PO DAILY [facility] Last Admin: 11/13/24 08:03 Dose: 25 mcg Documented By: HERON Labs 11/13/24 05:30 11/13/24 05:30 Labs: Laboratory Results - last 24 hr 11/12/24 11/12/24 11/12/24 14:07 17:48 20:07 MCV MCH MCHC RDW Plt Count MPV Absolute Nucleated RBC Nucleated RBC % (auto) Anion Gap Estim Creat Clear Calc Estimated GFR POC Glucose 199 H 269 H 345 H Random Glucose Calcium Magnesium Ur Random Sodium Urine Creatinine 11/13/24 11/13/24 11/13/24 05:30 07:04 11:27 MCV 87.7 MCH 29.4 MCHC 33.5 RDW 12.1 Plt Count 318 MPV 9.2 L Absolute Nucleated RBC 0.000 Nucleated RBC % (auto) 0.0 Anion Gap 15 Estim Creat Clear Calc 75.7 Estimated GFR > 60 POC Glucose 253 H 290 H Random Glucose 267 H Calcium 9.1 Magnesium 1.9 Ur Random Sodium Urine Creatinine 11/13/24 13:04 MCV MCH MCHC RDW Plt Count MPV Absolute Nucleated RBC Nucleated RBC % (auto) Anion Gap Estim Creat Clear Calc Estimated GFR POC Glucose Random Glucose Calcium Magnesium Ur Random Sodium < 20.0 Urine Creatinine 130.19 Assessment and Plan (1) Closed subcapital fracture of neck of femur: Status: Acute Assessment and Plan: d3 for 74yo F with bipolar disorder, DM2, HTN, HLD, GERD, hypothyroidism, and NED who fell and sustained R subcapital femur fracture R femur fracture - Ortho consulted, s/p R hemiarthroplasty 11/12, pain control with hydromorphone + oxycodone + APAP - PT/dispo planning hypoNa - Devyn <20 suggestive of prerenal state; will give 1L NS and recheck BMP in AM history of recurrent falls - telemetry monitoring HTN - lisinopril DM2 - hold MTF, give johnnie-dose lispro HLD - statin hypothyroidism - continue LT4 bipolar disorder - continue oxcarbazepine, lurasidone, duloxetine, mirtazapine GERD - PPI NED - continue Fe VTE ppx - LMWH x30d dispo - STR In my clinical judgment, the patient requires continued inpatient hospitalization for the following reasons: postop care Total time managing care of this patient today: 35 minutes. Quality Stroke Does the patient have a stroke diagnosis?: No Reason for No Anti-thrombotic by Day Two: Contraindicated VTE Prior VTE?: No VTE Risk Level:: Medical - moderate - high VTE Device Contraindication: N/A - Device Ordered VTE Drug Contraindication: N/A - Med Ordered
[2024-11-13] MEDS: Enoxaparin Sodium 40 MG/0.4 ML SYRINGE SUBCUT (15:10)
[2024-11-13] MEDS: 0.9 % Sodium Chloride 1,000 ML 50 ML IVCONT (15:10)
[2024-11-13 16:39] LABS: Glucose, Whole Blood 312 mg/dL (60-115)
[2024-11-13 20:44] LABS: Glucose, Whole Blood 252 mg/dL (60-115)
[2024-11-13] MEDS: OXcarbazepine 300 MG TABLET PO (21:46)
[2024-11-13] MEDS: Sennosides 8.6 MG TABLET 17.2 MG PO (21:47)
[2024-11-13] MEDS: Atorvastatin Calcium 40 MG TABLET PO (21:47)
[2024-11-13] MEDS: Mirtazapine 7.5 MG TABLET PO (21:47)
[2024-11-14] VITALS (8 sets, daily range): BP systolic 133–175; BP diastolic 62–79; PULSE 88–109; RESP 16–18; TEMP 36.1–37.2; O2SAT 91–97
[2024-11-14] MEDS: Omeprazole 20 MG CAPSULE.DR PO (05:15)
[2024-11-14] MEDS: Levothyroxine Sodium 25 MCG TABLET PO (05:15)
[2024-11-14] MEDS: oxyCODONE HCl Immed Release 5 MG TABLET PO ×2 (05:17→11:10)
[2024-11-14 06:14] LABS: Hematocrit 30.3 % (37.0-47.0); Hemoglobin 10.1 g/dl (12.0-16.0); Mean Corpuscular HGB Conc 33.3 g/dl (31.0-35.0); Mean Corpuscular Hemoglobin 29.5 pg (27.0-33.0); Mean Corpuscular Volume 88.6 fL (80.0-98.0); Mean Platelet Volume 9.5 fL (9.4-12.3); Platelet Count 286 X10*3/uL (160-400); Red Blood Count 3.42 X10*6/uL (4.20-5.50); Red Cell Distribution Width 12.2 % (11.0-16.0); White Blood Count 11.5 X10*3/uL (4.8-10.8)
[2024-11-14 06:34] LABS: Anion Gap 12 (12-20); Blood Urea Nitrogen 10 mg/dL (9-16); Calcium 8.9 mg/dL (8.4-10.2); Carbon Dioxide 27 mmol/L (22-29); Chloride 99 mmol/L (96-108); Creatinine Clr Calc Pharmacy 79.7; Estimated Glomerular Filt Rate > 60; Glucose Random 218 mg/dL (60-115); Magnesium 1.7 mg/dL (1.6-2.6); Potassium 4.1 mmol/L (3.3-5.1); Sodium 134 mmol/L (135-145)
--- NOTE | 2024-11-14 07:07 | PM.PNORT ---
Subjective Subjective Date of Service: 11/14/24 Interval history: POD1 s/p rt hip phyllis Patient is resting in bed comfortably Allowed to sleep No overnight events Physical Exam Vital Signs: Vital Signs: Last Vital Signs Temp 99 F 11/14/24 03:09 Pulse 99 11/14/24 03:09 Resp 18 11/14/24 03:09 BP 164/72 H 11/14/24 03:09 Pulse Ox 95 11/14/24 03:09 O2 Del Method Nasal Cannula 11/14/24 03:09 O2 Flow Rate 2 11/14/24 03:09 BMI result Body Mass Index 30.4 Const: General: cooperative, healthy appearing and no acute distress Resp: Effort & Inspection: normal respiratory effort and able to speak in complete sentences Cardio: Rate: regular rate Peripheral pulses: Peripheral pulses 2+ throughout GI: Palpation (GI): Soft to palpation Skin: Lesions: no lesions Rashes: no rashes Extrem: Other: right hip dressing is c/d/i. Able to dorsi/plantar flex. Calf is supple and nontender. Sensation intact. Pedal pulse intact. Procedures Date of Service Date of Service: 11/14/24 Progress Note: A&P Assessment and plan (1) Closed subcapital fracture of neck of femur: Status: Acute Plan Continue pain mgmnt Continue Lovenox for dvt ppx Continue PT/OT for rt hip phyllis - WBAT, posterior precautions Dispo planning-PT, pain mgmnt, able to d/c to rehab once medically cleared Time Spent With Patient Time: Total time managing care of this patient today ____ minutes. Quality Stroke Does the patient have a stroke diagnosis?: No Reason for No Anti-thrombotic by Day Two: Contraindicated VTE Prior VTE?: No VTE Risk Level:: Medical - moderate - high VTE Device Contraindication: N/A - Device Ordered VTE Drug Contraindication: N/A - Med Ordered
[2024-11-14 07:45] LABS: Glucose, Whole Blood 220 mg/dL (60-115)
[2024-11-14] MEDS: Insulin Lispro 100 UNIT/ML 3 ML VIAL SUBCUT ×4 (08:08→20:40)
[2024-11-14] MEDS: DULoxetine HCl 60 MG CAPSULE.DR PO (08:09)
[2024-11-14] MEDS: Lurasidone HCl 80 MG TABLET PO (08:09)
[2024-11-14] MEDS: Ferrous Sulfate 324 MG TABLET.DR PO (08:09)
[2024-11-14] MEDS: OXcarbazepine 150 MG TABLET PO (08:09)
[2024-11-14] MEDS: lisinopriL 10 MG TABLET PO (08:09)
[2024-11-14] MEDS: Cholecalciferol (Vitamin D3) 25 MCG TABLET PO (08:09)
[2024-11-14] MEDS: HYDROmorphone HCl 0.5 MG/0.5 ML SYRINGE IVPUSH ×3 (09:30→20:40)
[2024-11-14 11:03] LABS: Glucose, Whole Blood 332 mg/dL (60-115)
--- NOTE | 2024-11-14 11:09 | P.PNIM_ITS ---
Subjective Subjective Date of Service: 11/14/24 Interval History: c/o R hip pain no chest pain or dyspnea Review of Systems Review of Systems: Yes all other systems are reviewed and are negative Physical Exam 2 Vital Signs: Vital Signs: Last Vital Signs Temp 98.0 F 11/14/24 07:48 Pulse 92 11/14/24 07:48 Resp 18 11/14/24 07:48 BP 158/62 H 11/14/24 09:26 Pulse Ox 97 11/14/24 07:48 O2 Del Method Nasal Cannula 11/14/24 07:48 O2 Flow Rate 2 11/14/24 07:48 BMI result Body Mass Index 30.4 Gen: in no acute distress HEENT: sclera anicteric, moist mucus membranes Neck: supple Lungs: clear to auscultation bilaterally Heart: regular rate and rhythm, no murmurs Abd: soft, non-tender, non-distended Ext: no edema, R hip dressings dry Skin: warm/well-perfused Neuro: alert and oriented x3, no focal findings Psych: appropriate affect Objective Data Active Medications Acetaminophen (Acetaminophen 325 Mg Tablet) 650 mg PO Q6H PRN PRN Reason: Pain, Mild 1-3,fever,headache Last Admin: 11/13/24 03:06 Dose: 650 mg Documented By: MIMI Atorvastatin Calcium (Atorvastatin Calcium 40 Mg Tablet) 40 mg PO BEDTIME [facility] Last Admin: 11/13/24 21:47 Dose: 40 mg Documented By: SARMAD Calcium Carbonate (Calcium Carbonate 750 Mg Tab.Chew) 750 mg PO Q4H PRN PRN Reason: Heartburn Cyanocobalamin (Cyanocobalamin (Vitamin B-12) 1,000 Mcg Tablet) 1,000 mcg PO MOWEFR [facility] Last Admin: 11/12/24 09:50 Dose: Not Given Documented By: PREETHI Non-Admin Reason: Med Not Available Dextrose (Dextrose 50 % 25 Gm/50 Ml Syringe) 25 gm IVPUSH Q15M PRN; Protocol PRN Reason: per Hypoglycemia Standing Ord. Duloxetine HCl (Duloxetine Hcl 60 Mg Capsule.) 60 mg PO DAILY [facility] Last Admin: 11/14/24 08:09 Dose: 60 mg Documented By: CIPRIANO Enoxaparin Sodium (Enoxaparin Sodium 40 Mg/0.4 Ml Syringe) 40 mg SUBCUT Q24H [facility] Last Admin: 11/13/24 15:10 Dose: 40 mg Documented By: HERON Ferrous Sulfate (Ferrous Sulfate 324 Mg Tablet.Dr) 324 mg PO DAILY [facility] Last Admin: 11/14/24 08:09 Dose: 324 mg Documented By: CIPRIANO Glucose (Glucose Gel 15 Gm Gel..Gram.) 15 gm PO Q15M PRN; Protocol PRN Reason: per Hypoglycemia Standing Ord. Hydralazine HCl (Hydralazine Hcl 20 Mg/Ml Vial) 10 mg IVPUSH Q6H PRN; Protocol PRN Reason: SBP > 160 Last Admin: 11/13/24 03:22 Dose: 10 mg Documented By: MIMI Hydromorphone HCl (Hydromorphone Hcl 0.5 Mg/0.5 Ml Syringe) 0.5 mg IVPUSH Q3H PRN; Protocol PRN Reason: Pain, Severe (Pain Scale 7-10) Last Admin: 11/14/24 09:30 Dose: 0.5 mg Documented By: CIPRIANO Cefazolin Sodium/Dextrose (Ancef) 2 gm in 50 mls @ 100 mls/hr IV POSTOP [facility] Insulin Human Lispro (Insulin Lispro 100 Unit/Ml 3 Ml Vial) 0 unit SUBCUT QIDACHS [facility]; Protocol Last Admin: 11/14/24 08:08 Dose: 4 unit Documented By: CIPRIANO Comments: Levothyroxine Sodium (Levothyroxine Sodium 25 Mcg Tablet) 25 mcg PO DAILY@0600 [facility] Last Admin: 11/14/24 05:15 Dose: 25 mcg Documented By: SARMAD Lisinopril (Lisinopril 10 Mg Tablet) 10 mg PO DAILY [facility]; Protocol Last Admin: 11/14/24 08:09 Dose: 10 mg Documented By: CIPRIANO Lurasidone HCl (Lurasidone Hcl 80 Mg Tablet) 80 mg PO DAILY [facility] Last Admin: 11/14/24 08:09 Dose: 80 mg Documented By: CIPRIANO Magnesium Hydroxide (Milk Of Magnesia 30 Ml Oral.Susp) 30 ml PO DAILY PRN PRN Reason: Constipation Melatonin (Melatonin 3 Mg Tablet) 6 mg PO BEDTIME PRN PRN Reason: Insomnia Mirtazapine (Mirtazapine 7.5 Mg Tablet) 7.5 mg PO BEDTIME [facility] Last Admin: 11/13/24 21:47 Dose: 7.5 mg Documented By: SARMAD Naloxone HCl (Naloxone Hcl 0.4 Mg/Ml Vial) 0.04 mg IVPUSH Q5M PRN PRN Reason: Excessive sedation or RR < 8 Omeprazole (Omeprazole 20 Mg Capsule.Dr) 20 mg PO DAILY@0630 [facility] Last Admin: 11/14/24 05:15 Dose: 20 mg Documented By: SARMAD Ondansetron HCl (Ondansetron Hcl 4 Mg/2 Ml Vial) 4 mg IVPUSH Q8H PRN PRN Reason: Nausea and Vomiting Last Admin: 11/12/24 14:11 Dose: 4 mg Documented By: ЮЛИЯ Oxcarbazepine (Oxcarbazepine 150 Mg Tablet) 150 mg PO DAILY [facility] Last Admin: 11/14/24 08:09 Dose: 150 mg Documented By: CIPRIANO Oxcarbazepine (Oxcarbazepine 300 Mg Tablet) 300 mg PO BEDTIME [facility] Last Admin: 11/13/24 21:46 Dose: 300 mg Documented By: SARMAD Oxycodone HCl (Oxycodone Hcl Immed Release 5 Mg Tablet) 5 mg PO Q6H PRN PRN Reason: Pain, Moderate(Pain Scale 4-6) Last Admin: 11/14/24 05:17 Dose: 5 mg Documented By: SARMAD Polyethylene Glycol (Polyethylene Glycol 3350 17 Gm Powd.Pack) 17 gm PO DAILY PRN PRN Reason: Constipation Senna (Sennosides 8.6 Mg Tablet) 17.2 mg PO BEDTIME [facility] Last Admin: 11/13/24 21:47 Dose: 17.2 mg Documented By: SARMAD Sodium Chloride (0.9 % Sodium Chloride Flush 3 Ml Syringe) 3 ml IVFLUSH QSHIFT [facility] Last Admin: 11/14/24 08:13 Dose: Not Given Documented By: CIPRIANO Non-Admin Reason: IV Running Vitamin D (Cholecalciferol (Vitamin D3) 25 Mcg Tablet) 25 mcg PO DAILY [facility] Last Admin: 11/14/24 08:09 Dose: 25 mcg Documented By: CIPRIANO Labs 11/14/24 05:26 11/14/24 05:26 Labs: Laboratory Results - last 24 hr 11/13/24 11/13/24 11/13/24 11:27 13:04 16:31 MCV MCH MCHC RDW Plt Count MPV Absolute Nucleated RBC Nucleated RBC % (auto) Anion Gap Estim Creat Clear Calc Estimated GFR POC Glucose 290 H 312 H Random Glucose Calcium Magnesium Ur Random Sodium < 20.0 Urine Creatinine 130.19 11/13/24 11/14/24 11/14/24 20:37 05:26 07:41 MCV 88.6 MCH 29.5 MCHC 33.3 RDW 12.2 Plt Count 286 MPV 9.5 Absolute Nucleated RBC 0.000 Nucleated RBC % (auto) 0.0 Anion Gap 12 Estim Creat Clear Calc 79.7 Estimated GFR > 60 POC Glucose 252 H 220 H Random Glucose 218 H Calcium 8.9 Magnesium 1.7 Ur Random Sodium Urine Creatinine 11/14/24 10:58 MCV MCH MCHC RDW Plt Count MPV Absolute Nucleated RBC Nucleated RBC % (auto) Anion Gap Estim Creat Clear Calc Estimated GFR POC Glucose 332 H Random Glucose Calcium Magnesium Ur Random Sodium Urine Creatinine Assessment and Plan (1) Closed subcapital fracture of neck of femur: Status: Acute Assessment and Plan: d4 for 74yo F with bipolar disorder, DM2, HTN, HLD, GERD, hypothyroidism, and NED who fell and sustained R subcapital femur fracture R femur fracture - Ortho consulted, s/p R hemiarthroplasty 11/12, pain control with hydromorphone + oxycodone + APAP - medically cleared for STR hypoNa, prerenal - improved after NS IV given history of recurrent falls - no arrhythmias on telemetry HTN - lisinopril DM2 with hyperglycemia - hold MTF, increase correction-dose lispro HLD - statin hypothyroidism - continue LT4 bipolar disorder - continue oxcarbazepine, lurasidone, duloxetine, mirtazapine GERD - PPI NED - continue Fe VTE ppx - LMWH x30d postop dispo - STR In my clinical judgment, the patient requires continued inpatient hospitalization for the following reasons: awaiting STR Total time managing care of this patient today: 35 minutes. Quality Stroke Does the patient have a stroke diagnosis?: No Reason for No Anti-thrombotic by Day Two: Contraindicated VTE Prior VTE?: No VTE Risk Level:: Medical - moderate - high VTE Device Contraindication: N/A - Device Ordered VTE Drug Contraindication: N/A - Med Ordered
--- NOTE | 2024-11-14 14:23 | MHC.CM.PN ---
PT IS MEDICALLY READY TO DC TO STR PER HER PREFERENCES, REFERRALS W[facility] MADE TO [facility] NOT OFFER A BED, HOWEVER [facility] INDICATED THEY WOULD HAVE A BED TODAY CM HAS ATTEMPTED TO CONTACT SNF BY PHONE AND [facility]AREPORT WITH NO RESPONSE CM WILL CONTINUE EFFORTS
[2024-11-14] MEDS: Enoxaparin Sodium 40 MG/0.4 ML SYRINGE SUBCUT (15:48)
[2024-11-14] MEDS: 0.9 % Sodium Chloride Flush 3 ML SYRINGE IVFLUSH ×2 (15:49→20:39)
[2024-11-14 16:26] LABS: Glucose, Whole Blood 287 mg/dL (60-115)
[2024-11-14 20:21] LABS: Glucose, Whole Blood 321 mg/dL (60-115)
[2024-11-14] MEDS: Sennosides 8.6 MG TABLET 17.2 MG PO (20:40)
[2024-11-14] MEDS: OXcarbazepine 300 MG TABLET PO (20:40)
[2024-11-14] MEDS: Mirtazapine 7.5 MG TABLET PO (20:40)
[2024-11-14] MEDS: Atorvastatin Calcium 40 MG TABLET PO (20:40)
[2024-11-15] MEDS: Levothyroxine Sodium 25 MCG TABLET PO (05:24)
[2024-11-15] MEDS: Omeprazole 20 MG CAPSULE.DR PO (05:24)
[2024-11-15 07:30] VITALS: BP 175/87; PULSE 87; RESP 14; TEMP 36.6; O2SAT 98
[2024-11-15 07:41] LABS: Glucose, Whole Blood 201 mg/dL (60-115)
[2024-11-15] MEDS: Insulin Lispro 100 UNIT/ML 3 ML VIAL SUBCUT (09:06)
[2024-11-15] MEDS: lisinopriL 10 MG TABLET PO (09:07)
[2024-11-15] MEDS: Ferrous Sulfate 324 MG TABLET.DR PO (09:07)
[2024-11-15] MEDS: oxyCODONE HCl Immed Release 5 MG TABLET PO (09:08)
[2024-11-15] MEDS: OXcarbazepine 150 MG TABLET PO (09:08)
[2024-11-15] MEDS: DULoxetine HCl 60 MG CAPSULE.DR PO (09:08)
[2024-11-15] MEDS: Cholecalciferol (Vitamin D3) 25 MCG TABLET PO (09:08)
[2024-11-15] MEDS: Lurasidone HCl 80 MG TABLET PO (09:08)
[2024-11-15] MEDS: 0.9 % Sodium Chloride Flush 3 ML SYRINGE IVFLUSH (09:12)
[2024-11-15] MEDS: Cyanocobalamin (Vitamin B-12) 1,000 MCG TABLET 1000 MCG PO (09:18)
--- NOTE | 2024-11-15 10:50 | MHC.CM.PN ---
Patient medically cleared for dc to STR. Patient/daughter accepted bed at [facility]. Transport scheduled for 1130. RN, patient and daughter aware. IMM delivered.
[2024-11-15 11:01] VITALS: BP 142/68; PULSE 97; RESP 16; TEMP 37.3; O2SAT 95
--- NOTE | 2024-11-15 11:29 | P.DS_ITS ---
DS: Providers Provider Date of Service: 11/15/24 Date of admission: 11/11/24 19:01 Date of discharge: 11/15/24 Primary care physician: Unknown Physician Consults: 11/11/24 19:03 Consult to Orthopedics Routine Consulting Provider: [facility] Reason for consultation: R subcapital femoral neck fracture Has provider been notified: No 11/12/24 21:22 Consult to Wound Care Routine Reason for consultation: Surgical site R hip DS: Diagnosis Discharge Diagnosis (1) Closed subcapital fracture of neck of femur: Status: Acute DS: Summary Hospital Course Hospital Course: 74-year-old female currently living in [facility], an assisted living facility, with past medical history [id number] diabetes, hypertension, hyperlipidemia, GERD, hypothyroidism, iron-deficiency anemia, depression, vitamin-D and vitamin B12 deficiencies, seziure hx presents to the emergency department via ambulance status post unwitnessed fall resulting in right femur fracture. Patient states she was using her walker looking out her window and suddenly fell backwards with a walker. Patient is not 100% sure she had loss of consciousness or hit to the head.. Patient states she was on the floor for approximately 20 minutes before help arrived from staff at the facility. Patient offers that she does not understand why her legs give out the way they do. Patient reports other similar falls but no injury like today. Tacos was placed in the ED Hospital Course Admitted to general medical floor and seen in consultation by Orthopedics. On 11/12/2024 patient underwent right hip hemiarthroplasty. Her postoperative course was unremarkable. She was seen by Physical therapy and deemed appropriate for short-term rehab. Orthopedic recommendations as outlined. At this point she is medically acceptable for transfer to short-term rehab Time Attestation Discharge Coordination Time (in mins): 35 Quality: Safe Use of Opioids Does Pt have an Active Cancer Diagnosis on the Problem List?: No Quality: Stroke Does the patient have a stroke diagnosis?: No Physical Exam Vital Signs: Vital Signs: Last Vital Signs Temp 99.2 F 11/15/24 11:01 Pulse 97 11/15/24 11:01 Resp 16 11/15/24 11:01 BP 142/68 H 11/15/24 11:01 Pulse Ox 95 11/15/24 11:01 O2 Del Method Nasal Cannula 11/15/24 11:01 O2 Flow Rate 2 11/15/24 11:01 BMI result Body Mass Index 30.4 Const: Other: Awake alert no acute distress Resp: Other: Clear to auscultation bilaterally no rales rhonchi or wheezes Cardio: Other: No S4; positive S1-S2; no S3 murmurs rubs or gallops GI: Other: Soft nontender nondistended normoactive bowel sounds Extrem: Other: No edema bilaterally DS: Data Data Completed and Pending Pending studies at discharge: Pending at discharge 11/12/24 16:07 Surgical [PTH] Routine Labs on day of discharge: Laboratory Results - last 24 hr 11/14/24 11/14/24 11/15/24 16:22 20:09 07:38 POC Glucose 287 H 321 H 201 H Discharge Plan Discharge Anticipated Discharge Date/Time: 11/15/24 11:22 Patient Disposition: Xfer SNF Discharge Diagnosis: Closed subcapital fracture neck of left femur [facility] [Outside] - 1 Day (short term rehab) Physician,Unknown J [Primary Care Provider] - 1 Week Discharge Medications: New oxycodone 5 mg Tablet 5 mg PO Q6H PRN (Reason: Pain, Moderate(Pain Scale 4-6)) Qty: 30 0RF Rx Instructions: Partial Fill upon patient request. enoxaparin 40 mg/0.4 mL syringe 40 mg subcut DAILY Qty: 16.8 0RF Rx Instructions: 40mg/0.4ml daily x 6 weeks Continued atorvastatin 40 mg tablet 40 mg PO BEDTIME oxcarbazepine 150 mg tablet 150 mg PO DAILY lidocaine 4 % Adhesive Patch,Medicated 1 patch TOPICAL DAILY PRN (Reason: Pain) Rx Instructions: apply to right knee 12 hour on and 12 hours off meloxicam 15 mg Tablet 15 mg PO DAILY loperamide 2 mg Tablet 2 mg PO BID PRN (Reason: Diarrhea) Rx Instructions: administer after each loose stool until symptoms controlled; do not exceed 8 mg per 24 hrs cyanocobalamin (vitamin B-12) [Vitamin B-12] 1,000 mcg Tablet 1,000 mcg PO MOWEFR oxcarbazepine 300 mg tablet 300 mg PO BEDTIME acetaminophen 500 mg Tablet 500 mg PO Q6H PRN (Reason: Pain) levothyroxine 25 mcg tablet 25 mcg PO DAILY@0600 pantoprazole 40 mg tablet,delayed release (DR/EC) 40 mg PO DAILY@0630 metformin 1,000 mg tablet 1,000 mg PO BID lisinopril 10 mg tablet 10 mg PO DAILY Acidophilus Capsule 1,000 mmu cells PO DAILY mirtazapine 7.5 mg tablet 7.5 mg PO BEDTIME duloxetine 60 mg capsule,delayed release(DR/EC) 60 mg PO DAILY cholecalciferol (vitamin D3) [Vitamin D3] 25 mcg (1,000 unit) Tablet 25 mcg PO DAILY ferrous sulfate 324 mg (65 mg iron) Tablet,Delayed Release (Dr/Ec) 324 mg PO DAILY liraglutide [Victoza 3-Román] 0.6 mg/0.1 mL (18 mg/3 mL) Pen Injector 1.2 mg SUBCUT DAILY lurasidone 80 mg tablet 80 mg PO DAILY aspirin 81 mg Capsule 81 mg PO DAILY Discharge Orders: Discharge Order (Routine); Ordered 11/15/24 Ordered By: Óscar Pathak Diet: Advance to usual diet Activity on Discharge: Use cane or walker Stand Alone Forms: Patient Portal Discharge page Print Language: Armenian Activity Restrictions/Additional Instructions: Physical Therapy for total hip arthroplasty: posterior precautions, gait training, ROM, strength Limit stair climbing No showering, no tub bath-keep dressing clean, dry and intact No driving x 6 weeks Continue Lovenox x 6 weeks Follow up with [facility] Orthopedics in 2 weeks Care Plan Goals: Resume all meds as taken prior to admission Health Concerns: Therapies and treatments as per ortho Plan of Treatment: Physical therapy as per receiving facility Assessment: See discharge summary
== END 2024-11-15 11:52 | disposition skilled nursing facility (03) | DRG 522 ==
LOC: HO.ED 18:07 → HO.EDOVER 19:33 → HO.IMC 11-12 16:49 → HO.S3 11-13 19:27
PROVIDERS: Family Medicine; Orthopaedic Surgery; Physician Assistant; Student in an Organized Health Care Education/Training Program; Admitting Provider Nurse Practitioner Family; Emergency Provider Emergency Medicine Emergency Medical Services; PCP Internal Medicine; Visit Provider Hospitalist
PROC: 0SRR0JA Replacement of Right Hip Joint, Femoral Surface with Synthetic Substitute, Uncemented, Open Approach (ICD-10-PCS; principal; 2024-11-12 14:30)
DX: S72.011A Unspecified intracapsular fracture of right femur, initial encounter for closed fracture (principal); E87.1 Hypo-osmolality and hyponatremia; W19.XXXA Unspecified fall, initial encounter; I10 Essential (primary) hypertension; G40.909 Epilepsy, unspecified, not intractable, without status epilepticus; K21.9 Gastro-esophageal reflux disease without esophagitis; E78.5 Hyperlipidemia, unspecified; F31.9 Bipolar disorder, unspecified; E11.9 Type 2 diabetes mellitus without complications; R29.6 Repeated falls; E03.9 Hypothyroidism, unspecified; D50.9 Iron deficiency anemia, unspecified; Z87.891 Personal history of nicotine dependence; Z79.82 Long term (current) use of aspirin; Z79.84 Long term (current) use of oral hypoglycemic drugs; Z79.890 Hormone replacement therapy; Z79.899 Other long term (current) drug therapy
CPT/HCPCS: 36415; 71045; 72170; 73502; 80048; 80053; 81001; 82550; 82570; 82947; 83036; 83735; 84100; 84300; 84443; 85025; 85027; 85610; 86850; 86900; 86901; 88305; 88311; 93005; 97163; 97166; 99285; C1776; J0131; J0330; J0360; J0690; J1100; J1171; J1650; J1920; J2003; J2405; J2795; J3010; J3475

== ENCOUNTER → 2024-11-11 16:55 | Outpatient (BNV) | payer SELFPAY | PROVIDERS: Emergency Provider Emergency Medicine Emergency Medical Services; Visit Provider Radiology Diagnostic Radiology | DX: S72.011A Unspecified intracapsular fracture of right femur, initial encounter for closed fracture (principal); M25.551 Pain in right hip | CPT/HCPCS: 71045; 73502 ==

== ENCOUNTER 2024-11-11 19:01 | Outpatient (BNV) | payer MEDICARE, SELFPAY | END 2024-11-12 17:22 | PROVIDERS: Admitting Provider Nurse Practitioner Family; Emergency Provider Emergency Medicine Emergency Medical Services; Visit Provider Radiology Neuroradiology | DX: M85.851 Other specified disorders of bone density and structure, right thigh (principal) | CPT/HCPCS: 72170 ==

== ENCOUNTER 2024-11-11 19:01 | Outpatient (BNV) | payer MEDICARE, SELFPAY | END 2024-11-11 21:35 | PROVIDERS: Admitting Provider Nurse Practitioner Family; Emergency Provider Emergency Medicine Emergency Medical Services; Visit Provider Internal Medicine Cardiovascular Disease | DX: I10 Essential (primary) hypertension (principal) | CPT/HCPCS: 93010 ==

== ENCOUNTER → 2024-11-11 19:01 | Outpatient (BNV) | payer MEDICARE, SELFPAY | PROVIDERS: Admitting Provider Nurse Practitioner Family; Emergency Provider Emergency Medicine Emergency Medical Services; Visit Provider Physician Assistant | DX: S72.011A Unspecified intracapsular fracture of right femur, initial encounter for closed fracture (principal) | CPT/HCPCS: 27125; 99024; 99222 ==

== ENCOUNTER → 2024-11-11 19:01 | Outpatient (BNV) | payer MEDICARE, SELFPAY | PROVIDERS: Admitting Provider Nurse Practitioner Family; Emergency Provider Emergency Medicine Emergency Medical Services; Visit Provider Nurse Practitioner Family | DX: S72.011A Unspecified intracapsular fracture of right femur, initial encounter for closed fracture (principal) | CPT/HCPCS: 99223; 99232; 99239 ==

== ENCOUNTER 2024-11-29 05:50 | Outpatient (REF) | payer MEDICARE, OTHER, SELFPAY ==
[2024-11-29 05:49] LABS: MANUAL DIFF FLAG NO
[2024-11-29 06:40] LABS: Anion Gap 13 (12-20); Blood Urea Nitrogen 7 mg/dL (9-16); Calcium 8.9 mg/dL (8.4-10.2); Carbon Dioxide 24 mmol/L (22-29); Chloride 99 mmol/L (96-108); Estimated Glomerular Filt Rate > 60; Glucose Random 141 mg/dL (60-115); Potassium 4.8 mmol/L (3.3-5.1); Sodium 131 mmol/L (135-145)
[2024-11-29 06:53] LABS: Basophils Percent Auto 0.6 % (0-2); Eosinophils Absolute Auto 0.1 X10*3/uL (0.0-0.4); Hematocrit 32.6 % (37.0-47.0); Hemoglobin 11.1 g/dl (12.0-16.0); Imm Gran Abs Auto 0.05 X10*3/uL (0.00-0.03); Imm Gran Pct Auto 0.7 % (0.0-0.4); Lymphocytes Absolute Auto 1.6 X10*3/uL (1.2-4.9); Lymphocytes Percent Auto 21.9 % (20-40); Mean Corpuscular Hemoglobin 30.1 pg (27.0-33.0); Mean Corpuscular Volume 88.3 fL (80.0-98.0); Mean Platelet Volume 9.6 fL (9.4-12.3); Monocytes Absolute Auto 0.8 X10*3/uL (0.1-1.2); Monocytes Percent Auto 10.7 % (2-11); Neutrophils Absolute Auto 4.6 x10*3/uL (2.0-8.3); Neutrophils Percent Auto 65.1 % (45-73); Platelet Count 514 X10*3/uL (160-400); Red Blood Count 3.69 X10*6/uL (4.20-5.50); Red Cell Distribution Width 12.5 % (11.0-16.0); White Blood Count 7.1 X10*3/uL (4.8-10.8)
== END 2024-11-29 05:51 | disposition home or self-care (01) ==
LOC: HO.MMNH1L 05:50
PROVIDERS: Student in an Organized Health Care Education/Training Program; Visit Provider Nurse Practitioner Family
DX: Z13.89 Encounter for screening for other disorder (principal)
CPT/HCPCS: 36415; 80048; 85025; 99212

== ENCOUNTER 2024-11-29 08:35 | Outpatient (REF) | payer MEDICARE, OTHER, SELFPAY ==
--- NOTE | ~2024-11-29 | XR_ITS ---
EXAMINATION: XR HIP 2 OR MORE VIEWS RIGHT HISTORY: M25.551 - Pain in right hip COMPARISON: Comparison is made with the prior examination dated 11/12/2024. FINDINGS: A single AP view of the pelvis and 2 views of the right hip are submitted. The patient is again noted to be status post right total hip arthroplasty. The orthopedic elements are in anatomic alignment. There is no radiographic evidence of loosening. There is no fracture or dislocation. The soft tissues are unremarkable. XR/XR hip RT min 2V IMPRESSION: Status post right total hip arthroplasty. Electronically signed by: Wilman Eduardo MD 11/30/2024 07:21 AM EDT
--- OUTSIDE RECORDS SUMMARY | 2024-11-30 09:00 | XMS_ITS | Clinical Summary ---
Author Organization [facility] Address [address] [place] [address] Care Team Providers Care Fund Raiser Name Role Phone Rajinder Gonzalez MD Primary Care Provider [phone] Allergies Active Allergy Reactions Criticality Noted Date [...] of 1 - PCV) 2016 Influenza Vaccine (Season Ended) 2025 RSV Adult > 60+ Yrs or Pregn ant (1 - 1-dose 75+ series) 2026 Hepatitis B Vaccines Aged Out No long er eligible based on patient's age to complete this topic RSV Ped < 20 months Aged Out No longe r eligible based on patient's age to complete this topic Medical Devices Implanted Type Area Director Of Land Device Identifier Shelf Expiration Date Model / Serial / Lot Baseplate Triathlon 5 [place] Totl Stabilize Cemented - [id number] - [id number] Implanted:Qty: 1 on 10/06/2020 by Ankush Chávez MD at [facility] Location Left: Knee [facility] 09/14/2024 5521-B-500 / / [id number] Cement Simplex P Radiopaque Full Dose Bone 10 Pack - [id number] - [id number] Implanted:Qty: 1 on 10/06/2020 by Ankush Chávez MD at [facility] Location Left: Knee [facility] 03/29/2022 6191-1-010 / / [id number] Cement Simplex P Radiopaque Full Dose Bone 10 Pack - [id number] - [id number] Implanted:Qty: 1 on 10/06/2020 by Ankush Chávez MD at [facility] Location Left: Knee [facility] 03/29/2022 6191-1-010 / / [id number] Component Triathlon 4 Cruciate Retain Cemented Fem Knee - [id number] - [id number] Implanted:Qty: 1 on 10/06/2020 by Ankush Chávez MD at [facility] Location Left: Knee [facility] 08/06/2024 5510-F-401 / 5510-F-401 / [id number] Component Triathlon 10mm 35mm Asymmetric X3 Ptlar Knee - [id number] - [id number] Implanted:Qty: 1 on 10/06/2020 by Ankush Chávez MD at [facility] Location Left: Knee [facility] [employer] [facility] 08/08/2024 5551-G-350 -E / / [id number] Component Triathlon 10mm 32mm Asymmetric X3 Ptlar Knee - [id number] - [id number] Implanted:Qty: 1 on 10/06/2020 by Ankush Chávez MD at [facility] Location Left: Knee [facility] [employer] [facility] 09/11/2024 5551-G-320 -E / 5531-G-516 -E / [id number] Advance Directives For more information, please contact: [phone] Documents on File Type Date Recorded Patient Floating Derrick Operator Expl anation Advance Directive and Living Will [...] way: discussion with patient . Care Teams Fund Raiser Relationship Specialty Start Date End Date Rajinder Gonzalez MD [address] [place] [address], [place] [phone] PCP - General Sweeper Driver 10/02/20
== END 2024-11-29 08:36 | disposition home or self-care (01) ==
LOC: HO.HOSX 08:35
PROVIDERS: Visit Provider Physician Assistant
DX: M25.551 Pain in right hip (principal); S72.011D Unspecified intracapsular fracture of right femur, subsequent encounter for closed fracture with routine healing; X58.XXXD Exposure to other specified factors, subsequent encounter; Z98.890 Other specified postprocedural states
CPT/HCPCS: 36415; 73502; 80048; 85025; 99212

== ENCOUNTER 2024-11-29 14:21 | Outpatient (AMB) | payer MEDICARE, OTHER, SELFPAY ==
--- NOTE | 2024-11-29 14:28 | MHC.OFFVIS ---
Intake Visit Reasons: PO- s/p rt hip phyllis on 11/12/24 with NE Intake Note: Jammie is a 74 year old female who presents in a stretcher post operatively after undergoing a right hip hemiarthroplasty, DOS 11/12/[address] Sam. Allergies aspartame [From Nutrasweet Aspartame] Allergy (Verified 11/29/24 15:29) Unknown codeine Allergy (Verified 11/29/24 15:29) Unknown empagliflozin [From Jardiance] Allergy (Verified 11/29/24 15:29) Unknown Iodinated Contrast Media [IV Contrast Dye] Allergy (Verified 11/29/24 15:29) Unknown lamotrigine [From Lamictal] Allergy (Verified 11/29/24 15:29) Unknown HPI HPI PO- s/p rt hip phyllis on 11/12/24 with NE: Details: 74 yo female presents to the office today s/p Rt hip hemiarthroplasty 11/12/24 with NE. She is working with PT ambulating 50 feet with a walker. No concerns today. [facility] Medical History (Updated 11/23/24 @ 00:01 by Isha Christian) Dementia Seizures Vitamin B12 deficiency Vitamin D deficiency Depression Anemia Hypothyroid GERD (gastroesophageal reflux disease) Hyperlipidemia HTN (hypertension) Diabetes Social History (Updated 11/11/24 @ 20:34 by Ria Uribe [facility]) Household Members: None Housing: Apartment Do you presently have visiting nurse or other home services: No Alcohol intake: never Patient Tobacco Use Status: Former Tobacco user Second Hand Smoke Exposure: No service: No Review of Systems Const All systems reviewed & are unremarkable except as noted in HPI and below Physical Exam Extrem Other: Rt hip incision clean, dry and intact. No pain with ROM or hip flexion. Calf supple non tender, NVI. Results Reviewed Results Reviewed: Xrays were obtained in the office today and personally reviewed by me of the right hip show intact hip prosthesis Assessment & Plan Assessment & Plan (1) Closed subcapital fracture of neck of femur: Code(s): S72.019A - Unspecified intracapsular fracture of unspecified femur, initial encounter for closed fracture Category: Medical Qualifiers: Encounter type: initial encounter Laterality: right Qualified Code(s): S72.011A - Unspecified intracapsular fracture of right femur, initial encounter for closed fracture Plan: [place] removed today Steri-Strips applied. She will continue to work with physical therapy for gait training and strengthening exercises. Occupational therapy for ADLs. She can weightbear as tolerated with a walker. Posterior precautions intact. She will see me back in 4 weeks with x-rays, sooner if needed. Orders: Orders XR hip RT min 2V Today M25.551 - Pain in right hip Coding Level of Care Code Global (41548) Diagnoses Closed subcapital fracture of neck of femur S72.011A Encounter type: initial encounter Laterality: right
--- OUTSIDE RECORDS SUMMARY | 2024-11-29 15:36 | XMS_ITS | Clinical Summary ---
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 0 Active pantoprazole (PROTONIX) 40 MG tablet Take 40 mg by mouth every morning on an empty stomach. 0 Active levothyroxine (SYNTHROID, LEVOXYL) tablet 25 mcg Take 25 mcg by mouth every morning on an empty stomach. 0 Active BUPROPION HCL ER, SR, PO Take 200 mg by mouth daily. 0 Active DULoxetine (CYMBALTA) DR capsule 60 mg Take 60 mg by mouth 2 (two) times a day. 0 Active metFORMIN (GLUCOPHAGE) tablet 1000 mg Take 1,000 mg by mouth 2 (two) times a day with meals. 0 Active Calcium Carbonate-Vitamin D (CALCIUM 600+D PO) Take 1 tablet by mouth 2 (two) times a day. 0 Active traZODone (DESYREL) 150 MG tablet Take 150 mg by mouth every night at bedtime. 0 Active aspirin EC 81 MG tablet Take 81 mg by mouth daily. 0 Active Cyanocobalamin (B-12) 1000 MCG CAPS Take 1 tablet by mouth daily. 0 Active rosuvastatin (CRESTOR) tablet 40 mg Take 40 mg by mouth daily. 0 Active oxyCODONE-acetaminop hen (PERCOCET) 5-325 MG per tablet Take 2 tablets by mouth every 6 (six) hours as needed. 30 tablet 0 10/10/2020 Active acetaminophen (TYLENOL) 325 MG tablet Take 2 tablets (650 mg total) by mouth every 6 (six) hours as needed. 120 tablet 0 10/10/2020 Active docusate sodium 100 MG CAPS Take 100 mg by mouth 2 (two) times a day. 10 capsule 0 10/10/2020 Active polyethylene glycol (MIRALAX) 17 g packet Take 17 g by mouth daily. 14 each 0 10/11/2020 Active senna (SENOKOT) 8.6 MG tablet Take 2 tablets by mouth every night at bedtime. 14 tablet 0 10/10/2020 Active Family History Medical History Relation Name Comments Heart disease Father Breast cancer Mother Colon cancer Mother Thyroid disease Mother Relation Name Status Comments Father Mother Social History Tobacco Use Types Packs/Day Years Used Date Smoking Tobacco: Former Smokeless Tobacco: Never Alcohol Use Standard Drinks/Week Comments No 0 (1 standard drink = 0.6 oz pur e alcohol) Sex and Gender Information Value Date Recorded Sex Assigned at Female 10/02/2020 8:52 AM EDT Gender Identity Not on file Sexual Orientation Not on file Job Start Date Occupation Industry Not on file Not on file Not on file Last Filed Vital Signs Vital Sign Reading Time Taken Comments Blood Pressure 144/72 10/10/2020 7:21 AM EDT Pulse 92 10/10/2020 7:21 AM EDT Temperature 36.9 ??C (98.5 ??F) 10/10/2020 7 :21 AM EDT Respiratory Rate 22 10/10/2020 7:21 AM EDT Oxygen Saturation 95% 10/10/2020 7:2 1 AM EDT Inhaled Oxygen Concentration - - Weight 109.8 kg (242 lb) 10/06/2020 1:2 9 PM EDT with knee machine Height 165.1 cm (5' 5 ) 10/06/2020 1:29 PM EDT Body Mass Index 40.27 10/06/2020 1:29 PM EDT Plan of Treatment Health Maintenance Due Date Last Done Comments Hepatitis C Screening 1950 COVID-19 Vaccine (#1) 1951 Depression Screening 1963 BMI Counseling 1969 Preventative Health Evaluation 1969 DTap / Tdap / Td (1 - Tdap) 1970 Colon Cancer Screening (Colonoscopy) 1996 Breast Cancer Screening (Mammogram) 2001 Shingrix-Zoster Vaccine (1 of 2) 2001 Fall Risk Assessment 2016 Osteoporosis Screening (DEXA Scan) 2016 Pneumococcal Vaccine (1 of 1 - PCV) 2016 Influenza Vaccine (#1) 2024 RSV Adult > 60+ Yrs or Pregn ant (1 - 1-dose 75+ series) 2026 Hepatitis B Vaccines Aged Out No long er eligible based on patient's age to complete this topic RSV Ped < 20 months Aged Out No longe r eligible based on patient's age to complete this topic Medical Devices Implanted Type Area Cash Processing Specialist Device Identifier Shelf Expiration Date Model / Serial / Lot Baseplate Triathlon 5 [place] Totl Stabilize Cemented - [id number] - [id number] Implanted:Qty: 1 on 10/06/2020 by Ankush Chávez MD at [facility] Location Left: Knee [facility] 09/14/2024 5521-B-500 / / [id number] Cement Simplex P Radiopaque Full Dose Bone 10 Pack - [id number] - [id number] Implanted:Qty: 1 on 10/06/2020 by Ankush Chávez MD at [facility] Location Left: Knee [facility] 03/29/2022 6191-1-010 / / [id number] Cement Simplex P Radiopaque Full Dose Bone 10 Pack - [id number] - [id number] Implanted:Qty: 1 on 10/06/2020 by Ankush Chávez MD at [facility] Location Left: Knee [facility] 03/29/2022 6191-1-010 / / [id number] Component Triathlon 4 Cruciate Retain Cemented Fem Knee - [id number] - [id number] Implanted:Qty: 1 on 10/06/2020 by Ankush Chávez MD at [facility] Location Left: Knee [facility] 08/06/2024 5510-F-401 / 5510-F-401 / [id number] Component Triathlon 10mm 35mm Asymmetric X3 Ptlar Knee - [id number] - [id number] Implanted:Qty: 1 on 10/06/2020 by Ankush Chávez MD at [facility] Location Left: Knee [facility] [employer] 08/08/2024 5551-G-350 -E / / [id number] Component Triathlon 10mm 32mm Asymmetric X3 Ptlar Knee - [id number] - [id number] Implanted:Qty: 1 on 10/06/2020 by Ankush Chávez MD at [facility] Location Left: Knee [facility] [facility] 09/11/2024 5551-G-320 -E / 5531-G-516 -E / [id number] Advance Directives For more information, please contact: [phone] Documents on File Type Date Recorded Patient Industrial Controller Expl anation Advance Directive and Living Will 10/11/2020 4:29 PM [facility]. Health Care Prox y Latest Code Status on File Code Status Date Activated Date Inactivated Comments Full Code 10/06/2020 11:49 AM 10/10/2020 5:04 PM This code status was ascertained in the following way: discussion with patient. Code Status History Code Status Date Activated Date Inactivated Comments Full Code 10/06/2020 6:37 AM 10/06/2020 11:49 AM This c ode status was ascertained in the following way: discussion with patient . Care Teams Horticultural Agent Relationship Specialty Start Date End Date Rajinder Gonzalez MD [address] [place] [address], [place] [phone] PCP - General Typing Element Machine Operator 10/02/20
== END 2024-11-29 15:24 | disposition home or self-care (01) ==
LOC: HO.HOS 14:21
PROVIDERS: PCP Internal Medicine; Visit Provider Physician Assistant
DX: S72.011A Unspecified intracapsular fracture of right femur, initial encounter for closed fracture (principal)
CPT/HCPCS: 99024

== ENCOUNTER → 2024-11-29 14:23 | Outpatient (BNV) | payer MEDICARE, SELFPAY | PROVIDERS: Visit Provider Radiology Diagnostic Radiology | DX: Z96.641 Presence of right artificial hip joint (principal) | CPT/HCPCS: 73502 ==

== ENCOUNTER 2024-12-30 07:10 | Outpatient (REF) | payer MEDICARE, OTHER, SELFPAY ==
--- NOTE | ~2024-12-30 | XR_ITS ---
EXAMINATION: XR HIP 2 OR MORE VIEWS RIGHT HISTORY: M25.551 - Pain in right hip COMPARISON: Comparison is made with the prior examination dated 11/29/2024. FINDINGS: A single AP view of the pelvis and 2 views of the right hip are submitted. The patient is again noted to be status post right total hip arthroplasty. The orthopedic elements are in anatomic alignment. There is no radiographic evidence of loosening. There is no fracture or dislocation. The soft tissues are unremarkable. XR/XR hip RT min 2V IMPRESSION: Status post right total hip arthroplasty. Electronically signed by: Wilman Eduardo MD 12/30/2024 02:45 PM EDT
--- OUTSIDE RECORDS SUMMARY | 2025-01-04 07:12 | XMS_ITS | Clinical Summary ---
Author Organization [facility] Address [address] [place] [address] Care Team Providers Care Cable Installation Manager Name Role Phone Rajinder Gonzalez MD Primary Care Provider [phone] Allergies Active Allergy Reactions Criticality Noted Date [...] 92 10/10/2020 7:21 AM EDT Temperature 36.9 C (98.5 F) 10/10/2020 7:21 AM EDT Respiratory Rate 22 10/10/2020 7:21 [...] 1 - PCV) 2016 Influenza Vaccine (#1) 2025 RSV Adult > 60+ Yrs or Pregn ant (1 - 1-dose 75+ series) 2026 Hepatitis B Vaccines Aged Out No long er eligible based on patient's age to complete this topic RSV Ped < 20 months Aged Out No longe r eligible based on patient's age to complete this topic Medical Devices Implanted Type Area Women'S Swim Coach Device Identifier Shelf Expiration Date Model / Serial / Lot Baseplate Triathlon 5 [place] Totl Stabilize Cemented - [id number] - [id number] Implanted:Qty: 1 on 10/06/2020 by Ankush Chávez MD at [facility] Location Left: Knee [facility] 09/14/2024 5521-B-500 / / [id number] Cement Simplex P Radiopaque Full Dose Bone 10 Pack - [id number] - [id number] Implanted:Qty: 1 on 10/06/2020 by Ankush Chávez MD at [facility] Location Left: Knee [facility] 03/29/2022 6191-1-010 / / [id number] Cement Simplex P Radiopaque Full Dose Bone 10 Pack - [id number] - [id number] Implanted:Qty: 1 on 10/06/2020 by Ankush Chávez MD at [facility] Location Left: Knee [facility] 03/29/2022 6191-1-010 / / [id number] Component Triathlon 4 Cruciate Retain Cemented Fem Knee - [id number] - [id number] Implanted:Qty: 1 on 10/06/2020 by Ankush Chávez MD at [facility] Location Left: Knee [facility] 08/06/2024 5510-F-401 / 5510-F-401 / [id number] Component Triathlon 10mm 35mm Asymmetric X3 Ptlar Knee - [id number] - [id number] Implanted:Qty: 1 on 10/06/2020 by Ankush Chávez MD at [facility] Location Left: Knee [facility] [employer] [facility] 08/08/2024 5551-G-350 -E / / [id number] Component Triathlon 10mm 32mm Asymmetric X3 Ptlar Knee - [id number] - [id number] Implanted:Qty: 1 on 10/06/2020 by Ankush Chávez MD at [facility] Location Left: Knee [facility] [employer] [facility] 09/11/2024 5551-G-320 -E / 5531-G-516 -E / [id number] Advance Directives For more information, please contact: [phone] Documents on File Type Date Recorded Patient Dry Finisher Expl anation Advance Directive and Living Will [...] way: discussion with patient . Care Teams Cable Installation Manager Relationship Specialty Start Date End Date Rajinder Gonzalez MD [address] [place] [address], [address] [address] PCP - General Homeland Security Program Specialist 10/02/20
== END 2024-12-30 07:11 | disposition home or self-care (01) ==
LOC: HO.HOSX 07:10
PROVIDERS: Visit Provider Physician Assistant
DX: S72.011D Unspecified intracapsular fracture of right femur, subsequent encounter for closed fracture with routine healing (principal)
CPT/HCPCS: 73502; 99212

== ENCOUNTER 2024-12-30 14:12 | Outpatient (AMB) | payer MEDICARE, OTHER, SELFPAY ==
--- NOTE | 2024-12-30 14:20 | A.OFFVIS_ITS ---
Intake Visit Reasons: PO- s/p rt hip phyllis on 11/12/24 with NE-w/xrays Intake Note: Jammie is a 74 year old female who presents in a stretcher post operatively after undergoing a right hip hemiarthroplasty, DOS 11/12/[address] Sam. Patient reports she is doing well, She has completed physcial therapy. Here with responsible daughet Allergies aspartame (From Nutrasweet Aspartame) Allergy (Verified 11/29/24 15:29) Unknown codeine Allergy (Verified 11/29/24 15:29) Unknown empagliflozin (From Jardiance) Allergy (Verified 11/29/24 15:29) Unknown Iodinated Contrast Media (IV Contrast Dye) Allergy (Verified 11/29/24 15:29) Unknown lamotrigine (From Lamictal) Allergy (Verified 11/29/24 15:29) Unknown Medication List - Last Reconciled 12/30/24 by Anna Stacy PA-C acetaminophen 500 mg PO Q6H PRN aspirin 81 mg PO DAILY atorvastatin 40 mg PO BEDTIME cholecalciferol (vitamin D3) (Vitamin D3) 25 mcg PO DAILY cyanocobalamin (vitamin B-12) (Vitamin B-12) 1,000 mcg PO MOWEFR duloxetine 60 mg PO DAILY ferrous sulfate 324 mg PO DAILY Lactobacillus acidophilus (Acidophilus capsule) 1,000 mmu cells PO DAILY levothyroxine 25 mcg PO DAILY@0600 lidocaine 4% 1 patch topical DAILY PRN liraglutide (Victoza 3-Román) 1.2 mg subcut DAILY lisinopril 10 mg PO DAILY loperamide 2 mg PO BID PRN lurasidone 80 mg PO DAILY meloxicam 15 mg PO DAILY metformin 1,000 mg PO BID mirtazapine 7.5 mg PO BEDTIME oxcarbazepine 300 mg PO BEDTIME oxcarbazepine 150 mg PO DAILY pantoprazole 40 mg PO DAILY@0630 HPI HPI PO- s/p rt hip phyllis on 11/12/24 with NE-w/xrays: Details: 74-year-old female returns to the office today 6 weeks status post right hip hemiarthroplasty with Dr. Sam on 11/12/2024. The patient is ambulating with a walker and working with physical therapy. She denies any pain in the hip today. [facility] Medical History (Updated 11/23/24 @ 00:01 by Isha Christian) Dementia Seizures Vitamin B12 deficiency Vitamin D deficiency Depression Anemia Hypothyroid GERD (gastroesophageal reflux disease) Hyperlipidemia HTN (hypertension) Diabetes Social History (Updated 11/11/24 @ 20:34 [facility] Household Members: None Housing: Apartment Do you presently have visiting nurse or other home services: No Alcohol intake: never Patient Tobacco Use Status: Former Tobacco user Second Hand Smoke Exposure: No service: No Review of Systems Const All systems reviewed & are unremarkable except as noted in HPI and below Physical Exam Extrem Other: Rt hip incision well healed. No pain with ROM or hip flexion. Calf supple non tender, NVI. Results Reviewed Results Reviewed: Xrays were obtained in the office today and personally reviewed by me of the right hip show intact hip prosthesis Assessment & Plan Assessment & Plan (1) Closed subcapital fracture of neck of femur: Code(s): S72.019A - Unspecified intracapsular fracture of unspecified femur, initial encounter for closed fracture Category: Medical Qualifiers: Encounter type: initial encounter Laterality: right Qualified Code(s): S72.011A - Unspecified intracapsular fracture of right femur, initial encounter for closed fracture Plan: Patient will continue working with physical therapy to regain her strength and conditioning. Increase activities as tolerated and follow up as needed if symptom free. Orders: Orders XR hip RT min 2V Today M25.551 - Pain in right hip Coding Level of Care Code Global (69934) Diagnoses Closed subcapital fracture of neck of femur S72.011A Encounter type: initial encounter Laterality: right
== END 2024-12-30 14:41 | disposition home or self-care (01) ==
LOC: HO.HOS 14:12
PROVIDERS: PCP Internal Medicine; Visit Provider Physician Assistant
DX: S72.011A Unspecified intracapsular fracture of right femur, initial encounter for closed fracture (principal)
CPT/HCPCS: 99024

== ENCOUNTER → 2024-12-30 14:19 | Outpatient (BNV) | payer MEDICARE, OTHER, SELFPAY | PROVIDERS: Visit Provider Radiology Diagnostic Radiology | DX: M25.551 Pain in right hip (principal) | CPT/HCPCS: 73502 ==

== ENCOUNTER 2025-02-11 10:32 | Outpatient (REF) | payer MEDICARE, OTHER, SELFPAY ==
--- OUTSIDE RECORDS SUMMARY | 2025-02-12 10:34 | XMS_ITS | Clinical Summary ---
Author Organization [facility] Address [address] [place] [address] Care Team Providers Care Tank House Supervisor Name Role Phone Rajinder Gonzalez MD Primary Care Provider [phone] Allergies Active Allergy Reactions Criticality Noted Date [...] this topic Medical Devices Implanted Type Area Carpenter Labor Supervisor Device Identifier Shelf Expiration Date Model / Serial / Lot Baseplate Triathlon 5 [place] Totl Stabilize Cemented - [id number] - [id number] Implanted:Qty: 1 on 10/06/2020 by Ankush Chávez MD at [facility] Location Left: Knee [facility] 09/14/2024 5521-B-500 / / [id number] Cement Simplex P Radiopaque Full Dose Bone 10 Pack - [id number] - [id number] Implanted:Qty: 1 on 10/06/2020 by Ankush Chávez MD at [facility] Location Left: Knee [facility] 03/29/2022 6191-1-010 / / [id number] Cement Simplex P Radiopaque Full Dose Bone 10 Pack - 741703 - [id number] Implanted:Qty: 1 on 10/06/2020 by Ankush Chávez MD at [facility] Location Left: Knee [facility] 03/29/2022 6191-1-010 / / [id number] Component Triathlon 4 Cruciate Retain Cemented Fem Knee - 968172 - [id number] Implanted:Qty: 1 on 10/06/2020 by Ankush Chávez MD at [facility] Location Left: Knee [facility] 08/06/2024 5510-F-401 / 5510-F-401 / [id number] Component Triathlon 10mm 35mm Asymmetric X3 Ptlar Knee - [id number] - [id number] Implanted:Qty: 1 on 10/06/2020 by Ankush Chávez MD at [facility] Location Left: Knee [facility] [employer] [facility] 08/08/2024 5551-G-350 -E / / [id number] Component Triathlon 10mm 32mm Asymmetric X3 Ptlar Knee - [id number] - [id number] Implanted:Qty: 1 on 10/06/2020 by Ankush Chávez MD at [facility] Location Left: Knee [facility] [employer] [facility] 09/11/2024 5551-G-320 -E / 5531-G-516 -E / [id number] Advance Directives For more information, please contact: [phone] Documents on File Type Date Recorded Patient Carriage Dogger Expl anation Advance Directive and Living Will [...] way: discussion with patient . Care Teams Tank House Supervisor Relationship Specialty Start Date End Date Rajinder Gonzalez MD [address] [place] [address], [address] [address] PCP - General Drywall Installer 10/02/20
== END 2025-02-11 10:33 | disposition home or self-care (01) ==
LOC: HO.HOSX 10:32
PROVIDERS: Visit Provider Physician Assistant
DX: Z13.89 Encounter for screening for other disorder (principal)